=== PATIENT | female | born 1985 | race Caucasian/White ===

== ENCOUNTER 2024-07-08 03:56 | Emergency (ER) | payer OTHER, SELFPAY ==
[2024-07-08 04:00] VITALS: BP 129/87; PULSE 85; RESP 16; TEMP 36.7; O2SAT 99; BMI 25.7
[2024-07-08 04:30] VITALS: O2SAT 99
--- NOTE | 2024-07-08 06:28 | ED.GENADULT ---
HPI - General Adult General Date Seen: 08/01/24 Chief complaint: Abdominal Pain Stated complaint: Gallbladder Pain Time Seen by Provider: 07/08/24 06:28 Source: patient and RN notes reviewed Mode of arrival: ambulatory Limitations: no limitations History of Present Illness HPI narrative: This patient is presenting to the ED tonight with concern for gallbladder pain.? She has had episodes for years but it has never lasted this long.? She states maybe it would typically last today.? Her symptoms started on , today is early Tuesday morning.? She started with right upper pain, epigastric pain and cramping.? She had little body aches and chills on Tuesday, max temperature was 99? throughout all of this.? Now she is feeling pain into her right shoulder.? Symptoms definitely worsened with food.? She states she just really can not eat or drink.? She had a little diarrhea on Tuesday but otherwise no stool changes.? She tried some Excedrin tonight.? She has tried some Tums, did not really help, has had a little increased heartburn.? She states in her early 20s they did labs and an ultrasound, told her there were no stones but told her they could not rule out sludge.? Pain is not as bad as it was on Tuesday, just feels more of a dull ache in the epigastric area and it radiates to her right shoulder.? There is no associated cough or cold symptoms, not coughing.? She has had no abdominal surgeries.? Patient states she does not need anything for pain at this time. Current medications: control pills, spironolactone 100 mg daily, Valtrex p.r.n. Allergies: Morphine Related Data Home Medications ?Medication ?Instructions ?Recorded ?Confirmed desogestrel 0.15 mg-ethinyl 1 tab PO QDAY 08/22/22 07/08/24 estradiol 0.03 mg tablet (Apri) spironolactone 100 mg tablet 100 mg PO QDAY 08/22/22 07/08/24 Allergies Allergy/AdvReac Type Severity Reaction Status Date / Time morphine AdvReac Unknown Hives Verified 07/08/24 06:32 Review of Systems Status of ROS: Reports: 6 or more systems reviewed and unremarkable except as noted in History and below PFSH PFSH Social History Smoking Status: Never smoker How often do you have a drink containing alcohol: never AUDIT-C Alcohol total score: 0 Non-prescribed substance use: denies use Exam Const: Vital Signs, click to edit/add: Vital Signs - 24 hr 07/08/24 04:00 07/08/24 04:30 07/08/24 06:46 Temperature 98.0 F 98.0 F Pulse Rate [Pulse Oximeter] 85 75 Respiratory Rate 16 16 Blood Pressure [Ri ght Upper Arm] 129/87 124/86 Pulse Oximetry 99 99 99 Oxygen Delivery Me thod Room Air Room Air 07/08/24 06:47 Temperature 98.0 F Pulse Rate [Pulse Oximeter] 75 Respiratory Rate 16 Blood Pressure [Ri ght Upper Arm] 124/86 Pulse Oximetry Oxygen Delivery Me thod Physical exam:? She is afebrile at 98? F, pulse oximetry 99% on room air.? Respiratory rate 16.? Heart rate 85.? Blood pressure 129/87.? Patient is alert, interactive, no apparent distress.? Ambulatory into the ED of her own accord.? Sclera clear, conjugate gaze, symmetrical facial function.? Lungs are clear, good air entry, no wheezing crackles.? CV regular rate and rhythm, no murmur, normal S1-S2, no S3-S4.? Abdomen currently is soft, nontender, nondistended, no organomegaly, no rebound or guarding.? No jaundice noted. Documenting provider has reviewed patient's vital signs: yes Course Course ED Course: ED course:? Patient declines anything for pain.? Will get right upper quadrant ultrasound, agree with her this does sound biliary.? It could be biliary dyskinesia which she understands we will not necessarily see on ultrasound.? She certainly could have developed biliary colic with cholelithiasis.? Certainly does not seem to be consistent with pancreatitis but will check a lipase.? Need to consider cholecystitis but less likely the etiology at this time.? This may not be biliary, could be other intra-abdominal nonsurgical etiologies.? Will do full complement of labs and get the limited abdominal ultrasound of her right upper quadrant. Reevaluation(s) Reevaluation #1: Patient's ultrasound was not showing anything definitive, no specific gallbladder pathology on preliminary review from director of retail merchandising. Her C reactive protein is elevated at 5.2. Will proceed with CT imaging of abdomen and pelvis with IV contrast. Time of Reevaluation #2: 06:38 Reevaluation #2: Reviewed with patient her ultrasound, CT as well as labs. We did review the incidental findings on her CT scan. We also reviewed that her current symptoms are very likely from a viral illness causing the enteritis, colitis and mesenteric adenitis. I am surprised that she actually has not had more GI symptomatology but the ongoing pain certainly can be from the mesenteric adenitis. She has Zofran at home for migraine headaches and does not need more. We did discuss that she likely is through the worst but still may have a few days of symptoms. Mesenteric adenitis typically last anywhere from 5-10 days for most people that I have taking care of. She declines anything stronger for pain management. Did discuss that she should do scheduled Tylenol and ibuprofen. Patient in I did discuss HIDA scan for further evaluation of her gallbladder in the future if there is concern, can discuss this with her primary. We did review that this is a test that is not done through the ED. Vital Signs Vital signs: Initial Vital Signs Temperature 98.0 F 07/08/24 04:00 Temperature Source Temporal Artery Scan 07/08/24 04:00 Pulse Rate 85 07/08/24 04:00 Pulse Rhythm Regular 07/08/24 04:00 Respiratory Rate 16 07/08/24 04:00 Blood Pressure 129/87 07/08/24 04:00 Blood Pressure Mean 101 07/08/24 04:00 Blood Pressure Position Sitting 07/08/24 04:00 Pulse Oximetry 99 07/08/24 04:00 Oxygen Delivery Method Room Air 07/08/24 04:00 Vital Signs Temperature 98.0 F 07/08/24 04:00 Pulse Rate 85 07/08/24 04:00 Respiratory Rate 16 07/08/24 04:00 Blood Pressure 129/87 07/08/24 04:00 Pulse Oximetry 99 07/08/24 04:00 Oxygen Delivery Method Room Air 07/08/24 04:00 Temperature 98.0 F 07/08/24 06:47 Pulse Rate 75 07/08/24 06:47 Respiratory Rate 16 07/08/24 06:47 Blood Pressure 124/86 07/08/24 06:47 Pulse Oximetry 99 07/08/24 06:46 Oxygen Delivery Method Room Air 07/08/24 06:46 Medical Decision Making Lab Data Lab results reviewed: Yes I reviewed the patient's lab results Labs: Lab Results 07/08/24 Range/Units 04:15 WBC 5.03 (4.50-11.00) K/uL RBC 4.81 (4.00-5.20) m/uL Hgb 14.9 (12.0-16.0) gm/dL Hct 43.8 (33.0-51.0) % MCV 91 (80-100) fL MCH 31 (26-34) pg MCHC 34 (32-36) gm/dL Plt Count 245 (140-440) K/uL Neut % (Auto) 51.3 (42.0-72.0) % Lymph % (Auto) 32.6 (20-44) % Bethel % (Auto) 8.6 (0.0-11.0) % Eos % (Auto) 6.6 (0.0-7.0) % Baso % (Auto) 0.2 (0.0-3.0) % Neut # (Auto) 2.60 (1.7-7.0) K/uL Lymph # (Auto) 1.60 (0.90-2.90) K/uL Bethel # (Auto) 0.40 (0.00-0.90) K/UL Eos # (Auto) 0.30 (0.00-0.50) K/uL Baso # (Auto) 0.00 (0.00-0.30) K/uL Sodium 137 (135-149) mmol/L Potassium 4.2 (3.6-5.1) mmol/L Chloride 103 (96-114) mmol/L Carbon Dioxide 23 (20-32) mmol/L Anion Gap 11 (7-15) mEq/L BUN 12 (5-24) mg/dL Creatinine 0.8 (0.5-1.5) mg/dL Estimated Creat Clear 82.33 Estimated GFR 97 ml/min Glucose 103 (60-115) mg/dL Calcium 8.8 (8.4-10.6) mg/dL Total Bilirubin 0.6 (0.1-1.5) mg/dL Direct Bilirubin 0.4 (0.0-0.5) mg/dL AST 24 (12-35) U/L ALT 22 (4-35) U/L Alkaline Phosphatase 70 (40-150) U/L C-Reactive Protein 5.2 H (0.5-1.0) mg/dL Total Protein 6.9 (6.0-8.3) g/dL Albumin 4.0 (3.3-5.0) g/dL Lipase 67 (23-300) U/L Imaging Data US - abdomen: Attestation: I have reviewed the pertinent imaging results. Radiologist's impression: Facility:?[facility] Patient ID:?[id number] Site Patient ID:?[id number]. Site :?1985 Study:?US-Abdomen limited-07/08/2024 5:47:04 AM Ordering Physician:?Dr. Mendez Final Report: INDICATION: Right upper quadrant pain COMPARISON: None. TECHNIQUE: Parker-scale and color Doppler ultrasound of the right upper quadrant. FINDINGS: Pancreas: Well seen and normal. Liver: Normal hepatic echogenicity and normal echotexture. In the dome of the right lobe of the liver there is a 1.8 x 1.8 x 2.0 centimeter very well-circumscribed round homogeneously hyperechoic lesion. Patent portal vein with normal directional flow. Gallbladder and bile ducts: The gallbladder is normal. No stones or sludge. Normal wall thickness. No pericholecystic fluid. Negative sonographic Ma`s sign. No intrahepatic or extrahepatic biliary ductal dilatation. The common bile duct measures 4 mm. RIGHT Kidney: Renal length: 10.5 cm Parenchyma: Normal thickness and normal echogenicity. Cyst: None Mass: None Calculi: None Urinary tract: Minimal right renal pelviectasis with an anterior to posterior renal pelvic dimension of 1 centimeter. Abdominal aorta: Normal caliber. Ascites: None. IMPRESSION: 1. Mild right renal pelviectasis with an anterior-posterior dimension of 1 centimeter. This is usually physiologic but if the patient is having symptoms of urinary tract obstruction a ureteral calculus or other obstruction is possible. 2. There is a 2 centimeter liver lesion. Ultrasound appearance is generally consistent with a benign hemangioma. If this needs to be confirmed, MR abdomen without and with IV contrast liver mass protocol can be performed. Dictated by Caitie Wilson MD @ 07/08/2024 6:04:04 AM (Electronic Signature) CT scan - abdomen: Attestation: I have reviewed the pertinent imaging results. Radiologist's impression: Facility:?[facility] Patient ID:?[id number] Site Patient ID:?[id number]. Site :?1985 Study:?CT-Abdomen/Pelvis W/ 74CC ISOVUE 370-07/08/2024 6:13:34 AM Ordering Physician:BALTAZAR Final Report: INDICATION: Right upper quadrant abdominal pain. COMPARISON: Same day ultrasound TECHNIQUE: CT of the abdomen and pelvis with intravenous contrast. Multiplanar axial, coronal, and sagittal reformats were reconstructed. Contrast: 74 mL Isovue 370. FINDINGS: Lung bases: Normal. Liver: In segment there is a 1.7 centimeter subcapsular liver lesion. The lesion demonstrates nodular discontinuous hyperenhancement consistent with a benign hemangioma and also consistent with the appearance on ultrasound. No other liver lesions. Mild fatty infiltration at the falciform ligament. Normal hepatic vasculature. Gallbladder and bile ducts: Normal gallbladder. No bile duct dilation. Pancreas: Normal. Spleen: Normal. Adrenal glands: Normal. Kidneys: Normal parenchyma. No cyst or solid mass. No calculi. Minimal prominence of the extrarenal pelvises bilaterally symmetric. No ureteral dilatation. Urinary bladder: Barely filled at the time of the exam. Pelvis: There is a 2.5 centimeter right ovarian simple cystic lesion or dominant follicle. No adjacent inflammation or fluid. Vessels: Normal. Bowel: There is some mild mucosal hyperemia in the distal small bowel and colon. No wall thickening. Normal appendix. Mild stool burden. Lymph nodes: Numerous mildly enlarged to prominent mesenteric lymph nodes. See series 4, image 36. Peritoneum: No ascites. No free air. Abdominal wall: Tiny fat containing umbilical hernia. Bones: No fractures. No focal worrisome bone lesions. IMPRESSION: 1. Mesenteric adenitis. 2. Mild enteritis/colitis. No ischemia or obstruction. 3. Bilaterally symmetric prominent extrarenal pelvis appears physiologic. No urinary tract obstruction or urinary tract calculi. 4. There is a 1.7 centimeter hepatic benign hemangioma. No specific further imaging is recommended in a patient of this age given the ultrasound and CT findings today. 5. There is a 2.5 centimeter right ovarian cyst or dominant follicle. This is considered physiologic in a patient this age. Please note that all CT scans at this facility use dose modulation, iterative reconstruction, and/or weight-based dosing when appropriate to reduce radiation dose to as low as reasonably achievable. Dictated by Caitie Wilson MD @ 07/08/2024 6:24:08 AM (Electronic Signature) Discharge Plan Discharge Clinical Impression: Acute mesenteric adenitis, Enteritis, Colitis Patient Disposition: Home, Self-Care Condition: Stable Instructions: Mesenteric Adenitis (ED), Colitis (ED), Enteritis (ED) Additional Instructions: Can use Zofran if needed for nausea, take as your prescription at home states. Tylenol 1000 mg 3 times a day baseline for pain. Can supplement with ibuprofen per bottle directions if needed. Recommend clear liquids, small frequent sips. Can increase your diet as your abdominal symptoms improved. If you are not improving in the next 3-5 days, are worsening at any point with increasing abdominal pain, development of fevers or development of vomiting, do recommend re-evaluation. Prescriptions: No Action desogestrel-ethinyl estradiol [Apri] 0.15-0.03 mg tablet 1 tab PO QDAY spironolactone 100 mg tablet 100 mg PO QDAY Follow Up/Referrals: Reena Simmons MD [Primary Care Provider] - Stand Alone Forms: [employer] Info Instructions
--- OUTSIDE RECORDS SUMMARY | 2024-07-08 06:30 | XMS_ITS | Encounter Summary ---
Author Organization [place] Address [facility] [place] [address] Care Team Providers Care Spice Mixer Name Role Phone Emiliana Simmons MD Primary Care Provider + Emiliana Simmons MD Unavailable + Emiliana Simmons MD Unavailable + Vick Anne PA-C Unavailable + Emiliana Simmons MD Unavailable + Emiliana Simmons MD Unavailable + Iliana Greene CNM Unavailable [phone] Cris Smith MD Unavailable [phone] Opal Baumann APRN CREDIT UNDERWRITER Unavailable + Vick Anne PA-C Unavailable + Vick Anne PA-C Primary Care Provider [phone] Walter Waldrop DO Unavailable [phone] Encounter Details Date Type Department Care Team (Late st Contact Info) Description 04/30/2014 [facility] [id number] [place] [id number] Dina Robison DO [address] [place] [address] Social History Tobacco Use Types Packs/Day Years Used Date Smoking Tobacco: Never Smokeless Tobacco: Never Alcohol Use Standard Drinks/Week Comments Yes 0 (1 standard drink = 0.6 oz pur e alcohol) occasionally Comments No Sex and Gender Information Value Date Recorded Sex Assigned at Female 08/28/2018 9:26 AM CDT 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 Gender Identity Female 08/28/2018 9:26 AM CDT Sexual Orientation Straight 08/28/2018 9: 26 AM CDT documented as of this encounter Plan of Treatment Not on file documented as of this encounter Visit Diagnoses Not on filedocumented in this encounter Care Teams Spice Mixer Relationship Specialty Start Date End Date Emiliana Simmons MD PCP - General Family Practice 01/11/13 12/04/23 [place] [address] [address]ZAMA [id number] PCP - Assigned PCP 08/07/17 07/04/18 Vick Anne PA-C 64743 [address] [address] PCP - General 12/05/23 [place] [address] [address] [place]ZAMA [address] Assigned PCP 08/07/17 08/05/18 Vick Anne PA-C 320[address] [place] [address] Assigned PCP 08/06/18 04/14/19 [place] [address] [place] [address] Assigned PCP 04/15/19 08/30/20 [place] [address] [place] [address] Assigned PCP 08/31/20 03/05/22 Iliana Greene, [facility] [address] [place] [address] Assigned OBGYN Provider 03/22/21 Cris Smith MD [address] [facility] [address] [place], [place] [address] Assigned Surgical Provider 07/26/21 Opal Baumann APRN CREDIT UNDERWRITER [address] [place] [address] Assigned PCP 03/06/22 09/03/22 Vick Anne PA-C [address] [place] [address] Assigned PCP 09/04/22 [place] [address] JAM[address] RAI, [address] [address] Assigned Musculoskeletal Provider 12/23/23 documented as of this encounter
--- OUTSIDE RECORDS SUMMARY | 2024-07-08 06:31 | XMS_ITS | Encounter Summary ---
Author Organization [place] Address [facility] [place] [address] Care Team Providers Care Digital Product Specialist Name Role Phone Emiliana Simmons MD Primary Care Provider Emiliana Simmons MD Unavailable [phone] Emiliana Simmons MD Unavailable [phone] Vick Anne PA-C Unavailable + Emiliana Simmons MD Unavailable + Emiliana Simmons MD Unavailable + Iliana Greene CN Unavailable [phone] Cris Smith MD Unavailable [phone] Opal Baumann APRN DIRECTOR OF GLOBAL SALES Unavailable + Vick Anne PA-C Unavailable [phone] Vick Anne PA-C Primary Care Provider [phone] Walter Waldrop DO Unavailable [phone] Reason for Visit * Reason Onset Date Comments Weight Problem 10/10/2012 Weight gain Encounter Details Date Type Department Care Team (Late st Contact Info) Description 10/10/2012 [facility] [address], [address] [place] [address] [place] [address] [address] [id number] Weight Problem (Weight gain) Social History Tobacco Use Types Packs/Day Years Used Date Smoking Tobacco: Never Alcohol Use Standard Drinks/Week Comments Yes 0 (1 standard drink = 0.6 oz pur e alcohol) occasionally Comments Unknown Sex and Gender Information Value Date Recorded Sex Assigned at Female 08/28/2018 9:26 AM CDT 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 Please offer a thyroid tsh test, if not done in the past yr documented in this encounter Plan of Treatment Not on file documented as of this encounter Visit Diagnoses Not on filedocumented in this encounter Care Teams Digital Product Specialist Relationship Specialty Start Date End Date Emiliana Simmons MD PCP - General Family Practice 01/11/13 12/04/23 [place] [address] [address]ZAMA [id number] PCP - Assigned PCP 08/07/17 07/04/18 Vick Anne PA-C 00439 EMILY LIZAMA [address] PCP - General 12/05/23 [place] [address] [place] [address] Assigned PCP 08/07/17 08/05/18 Vick Anne PA-C [address] [place] [address] Assigned PCP 08/06/18 04/14/19 [place] [address] [place] [address] Assigned PCP 04/15/19 08/30/20 [place] [address] [place] [address] Assigned PCP 08/31/20 03/05/22 Iliana Greene CNM [address] [place] [address] Assigned OBGYN Provider 03/22/21 Cris Smith MD [address] [facility] [address] [place], [place] [id number] Assigned Surgical Provider 07/26/21 Opal Baumann APRN DIRECTOR OF GLOBAL SALES [address] [place] [address] Assigned PCP 03/06/22 09/03/22 Vick Anne PA-C [address] [place] [address] Assigned PCP 09/04/22 [place] [address] JAM[address] RAI, [address] [address] Assigned Musculoskeletal Provider 12/23/23 documented as of this encounter
--- OUTSIDE RECORDS SUMMARY | 2024-07-08 06:31 | XMS_ITS | Encounter Summary ---
Author Organization [place] Address [facility] [place] [address] Care Team Providers Care [employer] Highway Patrol Name Role Phone Emiliana Simmons MD Primary Care Provider Emiliana Simmons MD Unavailable [phone] Emiliana Simmons MD Unavailable [phone] Iliana Greene CN Unavailable [phone] Cris Smith MD Unavailable [phone] Opal Baumann APRN [facility] Unavailable [phone] Vick Anne PA-C Unavailable Vick Anne PA-C Primary Care Provider [phone] Walter Waldrop DO Unavailable [phone] Reason for Visit * Reason Onset Date Comments Refill Request 10/16/2019 Encounter Details Date Type Department Care Team (Late st Contact Info) Description 10/16/2019 Lonnie Rodas [address], [address] [place] [address] Vick Anne PA-C [address] [place] [address] Refill Request Social History Tobacco Use Types Packs/Day Years Used Date Smoking Tobacco: Never Smokeless Tobacco: Never Alcohol Use Standard Drinks/Week Comments Yes 0 (1 standard drink = 0.6 oz pur e alcohol) occasionally PHQ-2 Answer Date Recorded PHQ-2 Score 0 05/10/2018 Comments No Sex and Gender Information Value Date Recorded Sex Assigned at Female 08/28/2018 9:26 AM CDT 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 No / Unsure 09/19/2019 7:38 AM CDT documented as of this encounter Miscellaneous Notes * Telephone Encounter - Pamela Posey RN - 10/16/2019 3:55 PM CDT Duplicate request, refusing refill request and closing encounter. Pamela Posey RN on 10/16/2019 at 3:55 PM documented in this encounter Plan of Treatment Not on file documented as of this encounter Visit Diagnoses Diagnosis Cold sore Herpes simplex without mention of complication documented in this encounter Additional Health Concerns Assessment Noted Time PHQ-9 Depression Total Score: 1 04/06/20 16 7:08 AM ZIPPER LINING FOLDER documented as of this encounter Care Teams Pilot [employer] Patrol Relationship Specialty Start Date End Date Emiliana Simmons MD PCP - General Family Practice 01/11/13 12/04/23 Vick Anne PA-C [address] EMILY LIZAMA [phone] PCP - General 12/05/23 [place] [address] [address]ZAMA [address] Assigned PCP 04/15/19 08/30/20 [place] [address] [address] LIZAMA [phone] Assigned PCP 08/31/20 03/05/22 Iliana Greene CN [address] [place], [place] [id number] Assigned OBGYN Provider 03/22/21 Cris Smith MD 420 [facility] [address] [place], [place] [address] Assigned Surgical Provider 07/26/21 Opal Baumann APRN HYDRAULIC PLUMBER [address] EMILY LIZAMA [id number] Assigned PCP 03/06/22 09/03/22 Vick Anne PA-C 66341 EMILY LIZAMA [id number] Assigned PCP 09/04/22 [place] [address] JAMAL RAI, [address] [address] Assigned Musculoskeletal Provider 12/23/23 documented as of this encounter
--- OUTSIDE RECORDS SUMMARY | 2024-07-08 06:31 | XMS_ITS | Encounter Summary ---
Author Organization [facility] Address [facility] [place] [address] Care Team Providers Care Diamond Picker Name Role Phone Emiliana Simmons MD Primary Care Provider Emiliana Simmons MD Unavailable [phone] Emiliana Simmons MD Unavailable [phone] Iliana Greene CN Unavailable [phone] Cris Smith MD Unavailable [phone] Opal Baumann APRN [facility] Unavailable [phone] Vick Anne PA-C Unavailable [phone] Vick Anne PA-C Primary Care Provider [phone] Walter Waldrop DO Unavailable [phone] Encounter Details Date Type Department Care Team (Late st Contact Info) Description 06/25/2019 [facility]ice [address], [address] [place] [address] Randi Brantley Social History Tobacco Use Types Packs/Day Years Used Date Smoking Tobacco: Never Smokeless Tobacco: Never Alcohol Use Standard Drinks/Week Comments Yes 0 (1 standard drink = 0.6 oz pur e alcohol) occasionally PHQ-2 Answer Date Recorded PHQ-2 Score 0 05/10/2018 Comments No Sex and Gender Information Value Date Recorded Sex Assigned at Female 08/28/2018 9:26 AM CDT 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 Gender Identity Female 08/28/2018 9:26 AM CDT Sexual Orientation Straight 08/28/2018 9: 26 AM CDT documented as of this encounter Plan of Treatment Not on file documented as of this encounter Visit Diagnoses Not on filedocumented in this encounter Additional Health Concerns Assessment Noted Time PHQ-9 Depression Total Score: 1 04/06/20 16 7:08 AM COKE WORKER documented as of this encounter Care Teams Diamond Picker Relationship Specialty Start Date End Date Emiliana Simmons MD PCP - General Family Practice 01/11/13 12/04/23 Vick Anne PA-C 31512 EMILY LIZAMA [id number] PCP - General 12/05/23 [place] [address] EMILY LIZAMA 74044 Assigned PCP 04/15/19 08/30/20 [place] [address] EMILY LIZAMA [id number] Assigned PCP 08/31/20 03/05/22 Iliana Greene CNM [address] [place] [address] Assigned OBGYN Provider 03/22/21 Cris Smith MD 420 [facility] [address] [place], [place] [address] Assigned Surgical Provider 07/26/21 Opal Baumann APRN JAVA J2EE SOFTWARE ENGINEER 00601 EMILY LIZAMA 10343 Assigned PCP 03/06/22 09/03/22 Vick Anne PA-C 74941 EMILY LIZAMA 76073 Assigned PCP 09/04/22 [place] [address] JAMAL RAI, [address] [address] Assigned Musculoskeletal Provider 12/23/23 documented as of this encounter
--- OUTSIDE RECORDS SUMMARY | 2024-07-08 06:31 | XMS_ITS | Encounter Summary ---
Author Organization [place] Address [facility] [place] [address] Care Team Providers Care Corporate Strategy Analyst Name Role Phone Emiliana Simmons MD Primary Care Provider Emiliana Simmons MD Unavailable [phone] Emiliana Simmons MD Unavailable [phone] Vick Anne PA-C Unavailable + Emiliana Simmons MD Unavailable + Emiliana Simmons MD Unavailable [phone] Iliana Greene CN Unavailable [phone] Cris Smith MD Unavailable [phone] Opal Baumann APRN SCHEME TECHNICIAN Unavailable + [phone] Vick Anne PA-C Unavailable [phone] Vick Anne PA-C Primary Care Provider [phone] Walter Waldrop DO Unavailable [phone] Reason for Visit * Reason Onset Date Comments Breast Problem 08/12/2014 Mastitis follow up Encounter Details Date Type Department Care Team (Late st Contact Info) Description 08/12/2014 [facility] [address], [address] [place] [address] [place] [address] EMILY LIZAMA [id number] Breast Problem (Mastitis follow up) Social History Tobacco Use Types Packs/Day Years Used Date Smoking Tobacco: Never Smokeless Tobacco: Never Alcohol Use Standard Drinks/Week Comments Yes 0 (1 standard drink = 0.6 oz pur e alcohol) occasionally Comments No Sex and Gender Information Value Date Recorded Sex Assigned at Female 08/28/2018 9:26 AM CDT Legal Sex Female 10:35 AM PUBLIC POLICY ASSOCIATE Gender Identity Female 08/28/2018 9:26 AM CDT Sexual Orientation Straight 08/28/2018 9: 26 AM CDT documented as of this encounter Miscellaneous Notes * Telephone Encounter - Emiliana Simmons MD - 08/12/2014 11:25 AM CDT This may need an appointment and exam. Is she feeling any firmness at all in the breast, or is everything back to normal? Is she also breast feeding or only pumping? An ultrasound maybe needed to check on everything documented in this encounter Plan of Treatment Not on file documented as of this encounter Visit Diagnoses Not on filedocumented in this encounter Care Teams Corporate Strategy Analyst Relationship Specialty Start Date End Date Emiliana Simmons MD PCP - General Family Practice 01/11/13 12/04/23 [place] [address] EMILY LIZAMA 43930 PCP - Assigned PCP 08/07/17 07/04/18 Vick Anne PA-C 04385 EMILY LIZAMA 81592 PCP - General 12/05/23 [place] [address] [place] [address] Assigned PCP 08/07/17 08/05/18 Vick Anne PA-C [address] [place] [address] Assigned PCP 08/06/18 04/14/19 [place] [address] [address] [place], [place] [id number] Assigned PCP 04/15/19 08/30/20 [place] [address] [address] [place], [place] [id number] Assigned PCP 08/31/20 03/05/22 Iliana Greene CNM [address] [place], [place] [id number] Assigned OBGYN Provider 03/22/21 Cris Smith MD 420 [facility] 396 [place], [place] [id number] Assigned Surgical Provider 07/26/21 Opal Baumann APRN SCHEME TECHNICIAN [address] [address] [place], [place] [id number] Assigned PCP 03/06/22 09/03/22 Vick Anne PA-C 132[address] [place] [address] Assigned PCP 09/04/22 [place] [address] JAMAL RAI, [address] [address] Assigned Musculoskeletal Provider 12/23/23 documented as of this encounter
--- OUTSIDE RECORDS SUMMARY | 2024-07-08 06:31 | XMS_ITS | Encounter Summary ---
Author Organization [place] Address Counts include 234 beds at the [facility]0 [facility] [address] Care Team Providers Care Oracle Ebs Architect Name Role Phone Emiliana Simmons MD Primary Care Provider Iliana Greene CNM Unavailable [phone] Cris Smith MD Unavailable [phone] Opal Baumann APRN MACHINING AND ASSEMBLY SUPERVISOR Unavailable [phone] Vick Anne PA-C Unavailable [phone] Vick Anne PA-C Primary Care Provider [phone] Walter Waldrop DO Unavailable [phone] Encounter Details Date Type Department Care Team (Late st Contact Info) Description 04/28/2022 [facility] Medical Advice [address] [address] Carito Olivares Social History Tobacco Use Types Packs/Day Years Used Date Smoking Tobacco: Never Smokeless Tobacco: Never Alcohol Use Standard Drinks/Week Comments Yes 0 (1 standard drink = 0.6 oz pur e alcohol) occasionally PHQ-2 Answer Date Recorded PHQ-2 Score 0 09/22/2021 Comments No Sex and Gender Information Value Date Recorded Sex Assigned at Female 08/28/2018 9:26 AM CDT Legal Sex Female 10:35 AM PATIENT CLERICAL ASSISTANT Gender Identity Female 08/28/2018 9:26 AM CDT Sexual Orientation Straight 08/28/2018 9: 26 AM CDT documented as of this encounter Plan of Treatment Not on file documented as of this encounter Visit Diagnoses Not on filedocumented in this encounter Additional Health Concerns Assessment Noted Time PHQ-9 Depression Total Score: 1 04/06/20 16 7:08 AM PATIENT CLERICAL ASSISTANT documented as of this encounter Care Teams Oracle Ebs Architect Relationship Specialty Start Date End Date Emiliana Simmons MD PCP - General Family Practice 01/11/13 12/04/23 Vick Anne PA-C 39588 EMILY LIZAMA [id number] PCP - General 12/05/23 Iliana Greene CNM [address] [place], [place] [id number] Assigned OBGYN Provider 03/22/21 Cris Smith MD 420 [facility] 396 [place], [place] [address] Assigned Surgical Provider 07/26/21 Opal Baumann APRN MACHINING AND ASSEMBLY SUPERVISOR 80294 EMILY LIZAMA [id number] Assigned PCP 03/06/22 09/03/22 Vick Anne PA-C 81825 EMILY LIZAMA [id number] Assigned PCP 09/04/22 [place] [address] JAMAL RAI, [address] [address] Assigned Musculoskeletal Provider 12/23/23 documented as of this encounter
--- OUTSIDE RECORDS SUMMARY | 2024-07-08 06:31 | XMS_ITS | Encounter Summary ---
Author Organization [place] Address [address] [facility] [address] Care Team Providers Care Birth Certificate Clerk Name Role Phone Emiliana Simmons MD Primary Care Provider Cris Smith MD Unavailable [phone] Vick Anne PA-C Unavailable [phone] Vick Anne PA-C Primary Care Provider [phone] Walter Waldrop DO Unavailable [phone] Reason for Visit * Reason Comments Medication Refill Encounter Details Date Type Department Care Team (Late st Contact Info) Description [facility] [address] [place] [address] Vick Anne PA-C [address] [place] [address] Medication Refill Social History Tobacco Use Types Packs/Day Years Used Date Smoking Tobacco: Never Smokeless Tobacco: Never Alcohol Use Standard Drinks/Week Comments Yes 0 (1 standard drink = 0.6 oz pur e alcohol) occasionally PHQ-2 Answer Date Recorded PHQ-2 Score 0 08/31/2022 Comments No Sex and Gender Information Value Date Recorded Sex Assigned at Female 08/28/2018 9:26 AM CDT Legal Sex Female 10:35 AM HIDE DROPPER Gender Identity Female 08/28/2018 9:26 AM CDT Sexual Orientation Straight 08/28/2018 9: 26 AM CDT documented as of this encounter Miscellaneous Notes * Telephone Encounter - Ju Galaviz RN - 11/03/2022 1:50 PM CDT Routing refill request to provider for review/approval because: Labs not current: Creatinine Date Value Ref Range Status 09/22/2021 0.70 0.52 - 1.04 mg/dL Final 08/28/2020 0.75 0.52 - 1.04 mg/dL Final documented in this encounter Plan of Treatment Not on file documented as of this encounter Visit Diagnoses Diagnosis Cold sore Herpes simplex without mention of complication documented in this encounter Additional Health Concerns Assessment Noted Time PHQ-9 Depression Total Score: 1 04/06/20 16 7:08 AM HIDE DROPPER documented as of this encounter Care Teams Birth Certificate Clerk Relationship Specialty Start Date End Date Emiliana Simmons MD PCP - General Family Practice 01/11/13 12/04/23 Vick Anne PA-C [address] [address] [place] [id number] PCP - General 12/05/23 Cris Smith MD [address] [place] [address] 396 [place] [address] Assigned Surgical Provider 07/26/21 Vick Anne PA-C 53023 EMILY LIZAMA [address] Assigned PCP 09/04/22 [place] [address] JAMAL RAI, [address] [address] Assigned Musculoskeletal Provider 12/23/23 documented as of this encounter
--- OUTSIDE RECORDS SUMMARY | 2024-07-08 06:31 | XMS_ITS | Encounter Summary ---
Author Organization [place] Address [facility] [place] [address] Care Team Providers Care Director News Name Role Phone Emiliana Simmons MD Primary Care Provider Emiliana Simmons MD Unavailable [phone] Emiliana Simmons MD Unavailable [phone] Iliana Greene CN Unavailable [phone] Cris Smith MD Unavailable [phone] Opal Baumann APRN [facility] Unavailable [phone] Vick Anne PA-C Unavailable [phone] Vick Anne PA-C Primary Care Provider [phone] Walter Waldrop DO Unavailable [phone] Encounter Details Date Type Department Care Team (Late st Contact Info) Description 08/08/2020 [facility] Advice [address] [address] Lili Anguiano MA Social History Tobacco Use Types Packs/Day Years Used Date Smoking Tobacco: Never Smokeless Tobacco: Never Alcohol Use Standard Drinks/Week Comments Yes 0 (1 standard drink = 0.6 oz pur e alcohol) occasionally PHQ-2 Answer Date Recorded PHQ-2 Score 0 05/10/2018 Comments No Sex and Gender Information Value Date Recorded Sex Assigned at Female 08/28/2018 9:26 AM CDT Legal Sex Female 10:35 AM STEAM TENDER Gender Identity Female 08/28/2018 9:26 AM CDT Sexual Orientation Straight 08/28/2018 9: 26 AM CDT documented as of this encounter Plan of Treatment Not on file documented as of this encounter Visit Diagnoses Not on filedocumented in this encounter Additional Health Concerns Assessment Noted Time PHQ-9 Depression Total Score: 1 04/06/20 16 7:08 AM STEAM TENDER documented as of this encounter Care Teams Director News Relationship Specialty Start Date End Date Emiliana Simmons MD PCP - General Family Practice 01/11/13 12/04/23 Vick Anne PA-C 65547 EMILY LIZAMA [address] PCP - General 12/05/23 [place] [address] EMILY LIZAMA [address] Assigned PCP 04/15/19 08/30/20 [place] [address] EMILY LIZAMA [id number] Assigned PCP 08/31/20 03/05/22 Iliana Greene CNM [address] [place] [address] Assigned OBGYN Provider 03/22/21 Cris Smith MD 420 [facility] 396 [place] [address] Assigned Surgical Provider 07/26/21 Opal Baumann APRN HEAD OF DESIGN 00899 EMILY LIZAMA [address] Assigned PCP 03/06/22 09/03/22 Vick Anne PA-C 03129 EMILY LIZAMA [address] Assigned PCP 09/04/22 [place] [address] JAMAL RAI, [address] [address] Assigned Musculoskeletal Provider 12/23/23 documented as of this encounter
--- OUTSIDE RECORDS SUMMARY | 2024-07-08 06:31 | XMS_ITS | Clinical Summary ---
Author Organization [facility] Address [address] [place] [address] Care Team Providers Care Contact Worker Name Role Phone Pcp, No Primary Care Provider Unavailabl e Allergies Active Allergy Reactions Criticality Noted Date Comments Morphine Hives 09/01/2009 Hives at IV site. Medications valACYclovir (VALTREX) 1 g tabletIndications: Herpes labialis 2 oral twice daily for a day, as needed for cold sores. 16 tablet 1 2 Active ethinyl estradiol-norelges trom (ORTHO EVRA) 150-20 mcg/24 hr patchIndications:O ther general counseling and advice for contraceptive management Apply 1 Patch on dry, clean, hairless skin once weekly. For 3 weeks, then skip a week 9 Patch 4 2 Active fluticasone, 50 mcg per actuation, nasal (FLONASE) sprayIndications:A llergic rhinitis, cause unspecified Inhale 1 [place] into both nostrils once daily. 1 Bottle 5 2 Active albuterol HFA (PRO-AIR,VENTOLIN, PROVENTIL) 90 mcg/actuation inhalerIndications :Unspecified asthma(493.90) Inhale 2 Puffs by mouth every 4 hours if needed. 1 Inhaler 0 3 Active Active Problems Problem Noted Date Diagnosed Date ASCUS on Pap smear-HPV 10/27/2011 Sinus infection 06/14/2011 Pancolitis 07/13/2010 Hypocalcemia 07/13/2010 Papanicolaou smear of cervix with low grade squamous intraepithelial lesion (LGSIL) 04/28/2009 Overview (03/29/2011): 04/09: LSIL [place] 05/11: minimal changes suggestive of HPV 02/08: positive for high-risk human papilloma virus, Pap shows atypical cells. BV 05/12: NIL 03/12: ASCUS +HPV Nipple discharge 01/18/2008 Overview (03/15/2011): Prolactin slightly elevated 01/07 - saw cost estimating manager who followed and determined was side effect of control; no further f/u needed. pcos 12/03/2005 ASTHMA NOS W/O STATUS ASTHMATICUS 03/28/2001 ACNE NEC 01/11/2000 Resolved Problems Problem Noted Date Diagnosed Date Resolved Date Acute hypokalemia 07/13/2010 03/15/2011 Acidosis, metabolic 07/13/2010 03/15/20 11 Palpitations 06/12/2009 03/15/2011 Overview (06/17/2009): Saw Dr. Valdez- felt to be due to [facility] Irregular menstrual cycle 01/11/2000 Immunizations Immunization Administration Dates Next Due DTP 11/28/1991,03/18/1988,1986 Hepatitis B (Peds) 12/20/2006,08/21/2004, 002 Human Papilloma Virus Vaccine 10/27/2011, 011,02/09/2010 Influenza, IIV3 (Age >=3 years) 01/05/2012,01/28 MMR 11/28/1991,03/18/1988 Oral Polio Vaccine 06/25/1993,11/28/1991, 988,1986 Td (Age >=7 Years) 12/09/1998 Tdap 12/20/2006 Tuberculin (PPD) 09/14/2010 Family History Medical History Relation Name Comments Heart Disease Father one valve quiv ers instead of working normally- not sure if atrial fibrillation. Cancer-prostate Maternal Grandfather Hyperlipidemia Maternal Grandmother Other Maternal Grandmother gallsto trell Diabetes Paternal Grandmother Heart Disease Paternal Grandmother CHF Hypertension Paternal Grandmother Genetic Sister sister with kimberly lassemia beta trait Relation Name Status Comments Father Maternal Grandfather Maternal Grandmother Paternal Grandmother Sister Social History Tobacco Use Types Packs/Day Years Used Date Smoking Tobacco: Never Smokeless Tobacco: Never Tobacco Cessation:Counseling Given: No Alcohol Use Standard Drinks/Week Comments Yes 0 (1 standard drink = 0.6 oz pure alcohol) Occasional - 2-3 drinka a month Comments No Sex and Gender Information Value Date Recorded Sex Assigned at Not on file Legal Sex Female 5:24 AM SENIOR QC TECHNICIAN Gender Identity Not on file Sexual Orientation Not on file Occupation Industry 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 Not on file Not on file Not on fi le Obstetrics History Para Term AB IAB SAB Ectopic Multiple Livin g Live Births 0 0 0 0 0 0 0 0 0 0 Last Filed Vital Signs Vital Sign Reading Time Taken Comments Blood Pressure 100/70 03/30/2012 4:15 PM SENIOR QC TECHNICIAN Pulse 98 03/30/2012 4:15 PM SENIOR QC TECHNICIAN Temperature 36.8 C (98.3 F) 02/15/2011 8:58 AM CDT Respiratory Rate 16 07/15/2010 11:59 AM CDT Oxygen Saturation 100% 08/11/2011 4:02 PM CDT Inhaled Oxygen Concentration - - Weight 53.7 kg (118 lb 6.4 oz) 03/30/2012 4:15 P M SENIOR QC TECHNICIAN Height 162.6 cm (5' 4) 03/30/2012 4:15 PM SENIOR QC TECHNICIAN Body Mass Index 20.32 03/30/2012 4:15 PM SENIOR QC TECHNICIAN Plan of Treatment Health Maintenance Due Date Last Done Comments Depression screening for age 12+ 1998 BMI (ht and wt on same day) for age 18+ 01/29/2004 Pap test for age 21-65 03/30/2015 2, 10/27/2011, 03/15/2011, Additional history exists Tetanus booster 12/20/2016 12/20/2006, 12/09/1998 (IA) Influenza for age 9-49 01/01/2024 01/05/2012, 0 2010 COVID-19 vaccine series ( season) 2024 Hepatitis C screening for age 18-79 Completed 12/03/2005, 08/21/2004 Tdap Completed 12/20/2006 HIV for age 15-65 Completed 07/15/2010 Pneumococcal series for age 6-49 Aged Out No longer eligible based on patient's age to complete this topic Procedures Procedure Name Priority Date/Time Associated Diagnosis Comments FOOD MOBILE DRIVER THIN PREP PAP DIAGNOSTIC IMAGED Routine 03/30/2012 5:20 PM SENIOR QC TECHNICIAN LGSIL on Pap smear ANTI HIV 1/2 Early AM 07/15/2010 8:30 AM CDT ANTI HCV Routine 12/03/2005 2:57 PM CDT Screening Exam Venereal Disease from Last 3 Months or Most Recently Relevant to Health Maintenance Results * FOOD MOBILE DRIVER THIN PREP PAP DIAGNOSTIC IMAGED (03/30/2012 5:20 PM SENIOR QC TECHNICIAN) CYTOLOGY CYTOPATHOLOGY REPORT [facility] Status: Final Status [id number] CLINICAL INFORMATION Last Date of LMP :03/08/12 Last Pap Date :10/27/2011 Last Pap Result :LSIL ABN [place]/Bx Past 5 YRS :LSIL Hormone Usage :BCP/OCP/Patch/Rin g Menstrual Status :Regular Periods [place]/Bx done today :No Additional Information :None given HPV Request :HPV if ASCUS SPECIMEN SOURCE :Cervical/vaginal ThinPrep Vial, diagnostic SPECIMEN ADEQUACY :Satisfactory for evaluation Endocervical component present. INTERPRETATION/RES ULT Negative for intraepithelial lesion or malignancy (NIL) Organisms Fungal organisms morphologically consistent with Carol species Cytology 1st Screener :gn Cytology 2nd Screener :sag Signed by :june This specimen was screened by the FDA approved ThinPrep Imaging System and manually reviewed. NOTE: The Pap test is a screening technique, not a diagnostic procedure. It is used primarily to screen for squamous cancers and precursor lesions. Published studies have shown that it is subject to both false negative and false positive results. The pap test should not be used as the sole means to diagnose or exclude pre-malignant and malignant lesions. COLLECTED:03/30/12 ACCESSIONED: 04/01/12 SIGNED: 04/06/12 [facility] [place] CODE NIL [facility] Tissue specimen (specimen) (Cervical/Vagina l) 03/30/2012 5:20 PM SENIOR QC TECHNICIAN 03/30/2012 5:19 PM SENIOR QC TECHNICIAN us Edie Orr MD PATHOLOGY/CYTOLOGY Final Resul t [facility] INTERNAL ZIP [address] [place] [address] * ANTI HIV 1/2 (07/15/2010 8:30 AM CDT) ANTI HIV 1/2 Non-reacti ve [facility] Blood specimen (specimen) BLOOD SPECIMEN / Unknown 07/15/2010 8:30 AM CDT 07/14/2010 10:02 PM CDT us Gonzalo Nix MD SEND OUTS Final Result [facility] INTERNAL ZIP [id number] [place] [id number] * ANTI HCV (12/03/2005 2:57 PM CDT) ANTI HCV Non-reactiv e [facility] Blood specimen (specimen) BLOOD SPECIMEN / Unknown 12/03/2005 2:57 PM CDT 12/03/2005 2:55 PM CDT Narrative [facility] - 12/08/2005 8:31 AM CDT Testing Performed By [place], [place] us Silvia Pate MD SEND OUTS F inal Result [facility] [address] [place] [address] from Last 3 Months or Most Recently Relevant to [place] [address] Advance Directives * Full Code (Latest Code Status on File) Date Activated Date Inactivated Comments 07/13/2010 4:35 PM 07/15/2010 4:18 PM Care Teams Contact Worker Relationship Specialty Start Date End Date Pcp, No . PCP - General 06/25/16
--- OUTSIDE RECORDS SUMMARY | 2024-07-08 06:31 | XMS_ITS | Encounter Summary ---
Author Organization [place] Address Formerly [facility] [place] [address] Care Team Providers Care Inspector Production Plastic Parts Name Role Phone Emiliana Simmons MD Primary Care Provider Emiliana Simmons MD Unavailable [phone] Emiliana Simmons MD Unavailable [phone] Iliana Greene CN Unavailable [phone] Cris Smith MD Unavailable [phone] Opal Baumann APRN [facility] Unavailable [phone] Vick Anne PA-C Unavailable Vick Anne PA-C Primary Care Provider [phone] Walter Waldrop DO Unavailable [phone] Reason for Visit * Reason Onset Date Comments Medication Update 05/02/2019 Spironolactone Encounter Details Date Type Department Care Team (Late st Contact Info) Description 05/02/2019 MyC Medical Advice [address], [address] [place] [address] [place] [address] [facility] [place] [place] [address] Medication Update (Spironolactone) Social History Tobacco Use Types Packs/Day Years Used Date Smoking Tobacco: Never Smokeless Tobacco: Never Alcohol Use Standard Drinks/Week Comments Yes 0 (1 standard drink = 0.6 oz pur e alcohol) occasionally PHQ-2 Answer Date Recorded PHQ-2 Score 0 05/10/2018 Comments No Sex and Gender Information Value Date Recorded Sex Assigned at Female 08/28/2018 9:26 AM CDT Legal Sex Female 10:35 AM PATIENT SUPPORT TECH Gender Identity Female 08/28/2018 9:26 AM CDT Sexual Orientation Straight 08/28/2018 9: 26 AM CDT documented as of this encounter Miscellaneous Notes * Telephone Encounter - Emiliana Simmons MD - 05/03/2019 3:40 PM PATIENT SUPPORT TECH Please call pt. She can make a acne follow appt appt or Evisit, we can keep adjusting or changing her meds, if she wants the IUD out, this is her call, please offer appt if needed ENT SUPPORT TECH documented in this encounter Plan of Treatment Not on file documented as of this encounter Visit Diagnoses Not on filedocumented in this encounter Additional Health Concerns Assessment Noted Time PHQ-9 Depression Total Score: 1 04/06/20 16 7:08 AM PATIENT SUPPORT TECH documented as of this encounter Care Teams Inspector Production Plastic Parts Relationship Specialty Start Date End Date Emiliana Simmons MD PCP - General Family Practice 01/11/13 12/04/23 Vick Anne PA-C 75108 EMILY LIZAMA [address] PCP - General 12/05/23 [place] [address] EMILY LIZAMA 24003 Assigned PCP 04/15/19 08/30/20 [place] [address] [place] [address] Assigned PCP 08/31/20 03/05/22 Iliaan Greene CNM [address] [place] [address] Assigned OBGYN Provider 03/22/21 Cris Smith MD 420 [facility] 396 [place], [place] [address] Assigned Surgical Provider 07/26/21 Opal Baumann APRN LEAD PERFORMANCE SUPPORT ANALYST [address] [address] EMILY SARMIENTO [address] Assigned PCP 03/06/22 09/03/22 Vick Anne PA-C 08799 EMILY LIZAMA [address] Assigned PCP 09/04/22 [place] [address] JAMAL RAI, [address] [address] Assigned Musculoskeletal Provider 12/23/23 documented as of this encounter
--- OUTSIDE RECORDS SUMMARY | 2024-07-08 06:31 | XMS_ITS | Encounter Summary ---
Author Organization [place] Address [facility] [place] [address] Care Team Providers Care Painter Helper Spray Name Role Phone Emiliana Simmons MD Primary Care Provider Emiliana Simmons MD Unavailable [phone] Emiliana Simmons MD Unavailable [phone] Iliana Greene CN Unavailable [phone] Cris Smith MD Unavailable [phone] Opal Baumann APRN [facility] Unavailable [phone] Vick Anne PA-C Unavailable [phone] Vick Anne PA-C Primary Care Provider [phone] Walter Waldrop DO Unavailable [phone] Encounter Details Date Type Department Care Team (Late st Contact Info) Description 10/16/2019 [facility] [place] [address] [address] Randi Brantley Social History Tobacco Use Types [...] AM CDT Legal Sex Female 10:35 AM POWDER SHOVELER Gender Identity Female 08/28/2018 9:26 AM CDT [...] Total Score: 1 04/06/20 16 7:08 AM POWDER SHOVELER documented as of this encounter Care Teams Painter Helper Spray Relationship Specialty Start Date End Date Emiliana Simmons MD PCP - General Family Practice 01/11/13 12/04/23 Vick Anne PA-C 76381 EMILY LIZAMA [address] PCP - General 12/05/23 [place] [address] EMILY LIZAMA 82175 Assigned PCP 04/15/19 08/30/20 [place] [address] EMILY LIZAMA [address] Assigned PCP 08/31/20 03/05/22 Iliana Greene CNM [address]45 [place] [address] Assigned OBGYN Provider 03/22/21 Cris Smith MD 420 [facility] 396 [place], [place] [address] Assigned Surgical Provider 07/26/21 Opal Baumann APRN SHOWROOM SALES CONSULTANT [address] [place] [address] Assigned PCP 03/06/22 09/03/22 Vick Anne PA-C [address] [place] [address] Assigned PCP 09/04/22 [place] [address] JAMAL RAI, [address] [address] Assigned Musculoskeletal Provider 12/23/23 documented as of this encounter
--- OUTSIDE RECORDS SUMMARY | 2024-07-08 06:31 | XMS_ITS | Encounter Summary ---
Author Organization [place] Address [facility]0 [facility] [place] [address] Care Team Providers Care Acid Adjuster Name Role Phone Emiliana Simmons MD Primary Care Provider Emiliana Simmons MD Unavailable [phone] Iliana Greene CN Unavailable + [phone] Cris Smith MD Unavailable [phone] Opal Baumann APRN MANAGER FIXED INCOME Unavailable [phone] Vick Anne PA-C Unavailable [phone] Vick Anne PA-C Primary Care Provider [phone] Walter Waldrop DO Unavailable [phone] Encounter Details Date Type Department Care Team (Late st Contact Info) Description 01/11/2021 [facility] [place]ice [facility] [address] [place] [address] [place] [address] [place] [address] Social History Tobacco Use Types Packs/Day Years Used Date Smoking Tobacco: Never Smokeless Tobacco: Never Alcohol Use Standard Drinks/Week Comments Yes 0 (1 standard drink = 0.6 oz pur e alcohol) occasionally PHQ-2 Answer Date Recorded PHQ-2 Score 0 08/28/2020 Comments No Sex and Gender Information Value Date Recorded Sex Assigned at Female 08/28/2018 9:26 AM CDT Legal Sex Female 10:35 AM BACON SKIN LIFTER Gender Identity Female 08/28/2018 9:26 AM CDT Sexual Orientation Straight 08/28/2018 9: 26 AM CDT documented as of this encounter Miscellaneous Notes * Telephone Encounter - Emiliana Simmons MD - 01/13/2021 2:44 PM CDT Recommend video visit to discuss all options first before scheduling removal of IUD With me, if able to get in or partners. * Telephone Encounter - Amanda Harmon RN - 01/12/2021 12:09 PM CDT Will forward to Dr. Simmons for advisal. documented in this encounter Plan of Treatment Not on file documented as of this encounter Visit Diagnoses Not on filedocumented in this encounter Additional Health Concerns Assessment Noted Time PHQ-9 Depression Total Score: 1 04/06/20 16 7:08 AM BACON SKIN LIFTER documented as of this encounter Care Teams Acid Adjuster Relationship Specialty Start Date End Date Emiliana Simmons MD PCP - General Family Practice 01/11/13 12/04/23 Vick Anne PA-C 47889 EMILY LIZAMA [address] PCP - General 12/05/23 [place] [address] EMILY LIZAMA [address] Assigned PCP 08/31/20 03/05/22 Iliana Greene CNM 2945 [place] [address] Assigned OBGYN Provider 03/22/21 Cris Smith MD 420 [facility] 396 [place] [address] Assigned Surgical Provider 07/26/21 Opal Baumann APRN MANAGER FIXED INCOME [address] EMILY LIZAMA [address] Assigned PCP 03/06/22 09/03/22 Vick Anne PA-C 86452 EMILY LIZAMA [address] Assigned PCP 09/04/22 [place] [address] JAMAL RAI, [address] [address] Assigned Musculoskeletal Provider 12/23/23 documented as of this encounter
--- OUTSIDE RECORDS SUMMARY | 2024-07-08 06:33 | XMS_ITS | Encounter Summary ---
Author Organization [place] Address [address] [facility] [place] [address] Care Team Providers Care Fabric Pattern Grader Name Role Phone Emiliana Simmons MD Primary Care Provider Cris Smith MD Unavailable [phone] Vick Anne PA-C Unavailable [phone] Vick Anne PA-C Primary Care Provider [phone] Walter Waldrop DO Unavailable [phone] Reason for Visit * Reason Onset Date Comments Panel Management 08/03/2023 Encounter Details Date Type Department Care Team (Late st Contact Info) Description 08/03/2023 [facility] [address] [place] [address] [place] [address] [place] [address] Panel Management Social History Tobacco Use Types Packs/Day Years Used Date Smoking Tobacco: Never Smokeless Tobacco: Never Alcohol Use Standard Drinks/Week Comments Yes 0 (1 standard drink = 0.6 oz pur e alcohol) occasionally PHQ-2 Answer Date Recorded PHQ-2 Score 0 08/04/2023 Adolescent Education Answer Date Record ed Getting School Help Needed Not on file 01/21 Interpersonal Safety Answer Date Record ed Do you feel physically and e motionally safe where you currently live? Yes 08/04/2023 Within the past 12 months, h ave you been hit, slapped, kicked or otherwise physically hurt by someone? No 08/04/2023 Within the past 12 months, h ave you been humiliated or emotionally abused in other ways by your partner or ex-partner? No 08/04/2023 Comments No Sex and Gender Information Value Date Recorded Sex Assigned at Female 08/28/2018 9:26 AM CDT Legal Sex Female 10:35 AM GRAIN OILSEED OR PASTURE FARM MANAGER Gender Identity Female 08/28/2018 9:26 AM CDT Sexual Orientation Straight 08/28/2018 9: 26 AM CDT documented as of this encounter Miscellaneous Notes * Telephone Encounter - Ameya Brown MA - 11/01/2023 9:25 AM CDT Patient Quality Outreach Patient is due for the following: Asthma - ACT needed Cervical Cancer Screening - PAP Needed Physical Preventive Adult Physical Next Steps: Schedule a Adult Preventative Type of outreach: Sent letter. and Copy of ACT mailed to patient. Next Steps: Reach out within 90 days via Letter. Max number of attempts reached: No. Will try again in 90 days if patient still on fail list. Questions for provider review: None Ameya Brown MA * Telephone Encounter - Ameya Brown MA - 08/03/2023 11:28 AM CDT Patient Quality Outreach Patient is due for the following: Asthma - ACT needed Next Steps: Patient was assigned appropriate questionnaire to complete Type of outreach: Sent [employer] message. Questions for provider review: None Ameya Brown MA documented in this encounter Plan of Treatment Not on file documented as of this encounter Visit Diagnoses Not on filedocumented in this encounter Additional Health Concerns Assessment Noted Time PHQ-9 Depression Total Score: 1 04/06/20 16 7:08 AM GRAIN OILSEED OR PASTURE FARM MANAGER documented as of this encounter Care Teams Fabric Pattern Grader Relationship Specialty Start Date End Date Troy, Emiliana Gina, MD PCP - General Family Practice 01/11/13 12/04/23 Vick Anne PA-C [address] [place] [address] PCP - General 12/05/23 Cris Simth MD 420 [facility] 396 [place] [address] Assigned Surgical Provider 07/26/21 Vick Anne PA-C [address] [place] [address] Assigned PCP 09/04/22 [place] [address] JAMAL RAI, [address] [address] Assigned Musculoskeletal Provider 12/23/23 documented as of this encounter
--- OUTSIDE RECORDS SUMMARY | 2024-07-08 06:33 | XMS_ITS | Encounter Summary ---
Author Organization [place] Address [facility]0 [facility] [place] [address] Care Team Providers Care Sealer Sander Name Role Phone Emiliana Simmons MD Primary Care Provider Emiliana Simmons MD Unavailable [phone] Vick Anne PA-C Unavailable [phone] Emiliana Simmons MD Unavailable + Emiliana Simmons MD Unavailable + Iliana Greene [facility] Unavailable + [phone] Cris Smith MD Unavailable [phone] Opal Baumann APRN [facility] Unavailable + Vick Anne PA-C Unavailable + Vick Anne PA-C Primary Care Provider [phone] Walter Waldrop DO Unavailable [phone] Reason for Visit * Reason Onset Date Comments Appointment 07/06/2018 Physical exam Encounter Details Date Type Department Care Team (Late st Contact Info) Description 07/06/2018 [facility] [address], [address] [place] [address] [place] [address] EMILY LIZAMA [address] Appointment (Physical exam) Social History Tobacco Use Types Packs/Day Years Used Date Smoking Tobacco: Never Smokeless Tobacco: Never Alcohol Use Standard Drinks/Week Comments Yes 0 (1 standard drink = 0.6 oz pur e alcohol) occasionally PHQ-2 Answer Date Recorded PHQ-2 Score 0 05/10/2018 Comments No Sex and Gender Information Value Date Recorded Sex Assigned at Female 08/28/2018 9:26 AM CDT Legal Sex Female 10:35 AM QA TECH Gender Identity Female 08/28/2018 9:26 AM CDT Sexual Orientation Straight 08/28/2018 9: 26 AM CDT documented as of this encounter Plan of Treatment Not on file documented as of this encounter Visit Diagnoses Not on filedocumented in this encounter Additional Health Concerns Assessment Noted Time PHQ-9 Depression Total Score: 1 04/06/20 16 7:08 AM QA TECH documented as of this encounter Care Teams Sealer Sander Relationship Specialty Start Date End Date Emiliana Simmons MD PCP - General Family Practice 01/11/13 12/04/23 Vick Anne PA-C 96526 EMILY LIZAMA [address] PCP - General 12/05/23 [place] [address] EMILY LIZAMA [address] Assigned PCP 08/07/17 08/05/18 Vick Anne PA-C 70485 EMILY LIZAMA [address] Assigned PCP 08/06/18 04/14/19 [place] [address] EMILY LIZAMA [address] Assigned PCP 04/15/19 08/30/20 [place] [address] [place] [address] Assigned PCP 08/31/20 03/05/22 Iliana Greene [facility] 2945 [place] [address] Assigned OBGYN Provider 03/22/21 Cris Smith MD 420 [facility] 396 [place] [address] Assigned Surgical Provider 07/26/21 Opal Baumann APRN [facility] [address] [place] [address] Assigned PCP 03/06/22 09/03/22 Vick Anne PA-C [address] [place] [address] Assigned PCP 09/04/22 [place] [address] JAMAL RAI, [address] [address] Assigned Musculoskeletal Provider 12/23/23 documented as of this encounter
--- OUTSIDE RECORDS SUMMARY | 2024-07-08 06:33 | XMS_ITS | Encounter Summary ---
Author Organization [place] Address [address] [place] [address] Care Team Providers Care Cutter Grinder Operator Name Role Phone Emiliana Simmons MD Primary Care Provider Cris Smith MD Unavailable [phone] Vick Anne PA-C Unavailable [phone] Vick Anne PA-C Primary Care Provider [phone] Walter Waldrop DO Unavailable [phone] Encounter Details Date Type Department Care Team (Late st Contact Info) Description 08/04/2023 [facility] [address] [place] [address] [place] [address] [place] [address] Social History Tobacco Use Types [...] AM CDT Legal Sex Female 10:35 AM QUALITY CONTROL SUPERVISOR Gender Identity Female 08/28/2018 9:26 AM CDT Sexual Orientation Straight 08/28/2018 9: 26 AM CDT documented as of this encounter Plan of Treatment Not on file documented as of this encounter Visit Diagnoses Not on filedocumented in this encounter Additional Health Concerns Assessment Noted Time PHQ-9 Depression Total Score: 1 04/06/20 16 7:08 AM QUALITY CONTROL SUPERVISOR documented as of this encounter Care Teams Cutter Grinder Operator Relationship Specialty Start Date End Date Emiliana Simmons MD PCP - General Family Practice 01/11/13 12/04/23 Vick Anne PA-C 22434 EMILY LIZAMA [address] PCP - General 12/05/23 Cris Smith MD 420 [facility] 396 [place], [place] [address] Assigned Surgical Provider 07/26/21 Vcik Anne PA-C 23039 EMILY LIZAMA [address] Assigned PCP 09/04/22 [place] [address] JAMLA RAI, [address] [address] Assigned Musculoskeletal Provider 12/23/23 documented as of this encounter
--- OUTSIDE RECORDS SUMMARY | 2024-07-08 06:33 | XMS_ITS | Encounter Summary ---
Author Organization [place] Address [address] [place] [address] Care Team Providers Care Level Vial Grinder Name Role Phone Emiliana Simmons MD Primary Care Provider Emiliana Simmons MD Unavailable + Emiliana Simmons MD Unavailable + Vick Anne PA-C Unavailable + Emiliana Simmons MD Unavailable + Emiliana Simmons MD Unavailable + Iliana Greene CN Unavailable [phone] Cris Smith MD Unavailable [phone] Opal Baumann APRN [facility] Unavailable + Vick Anne PA-C Unavailable + Vick Anne PA-C Primary Care Provider [phone] Walter Waldrop DO Unavailable [phone] Reason for Visit * Reason Comments Home Care/Hospice Encounter Details Date Type Department Care Team (Late st Contact Info) Description 02/26/2016 Documentation Only [facility] [address] [place] [address] Dina Robison DO [address] [place] [address] Home Care/Hospice Social History Tobacco Use Types Packs/Day Years Used Date Smoking Tobacco: Never Smokeless Tobacco: Never Alcohol Use Standard Drinks/Week Comments Yes 0 (1 standard drink = 0.6 oz pur e alcohol) occasionally Comments No Sex and Gender Information Value Date Recorded Sex Assigned at Female 08/28/2018 9:26 AM CDT Legal Sex Female 10: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 TECHNOLOGY TEACHER Gender Identity Female 08/28/2018 9:26 AM CDT Sexual Orientation Straight 08/28/2018 9: 26 AM CDT documented as of this encounter Plan of Treatment Not on file documented as of this encounter Visit Diagnoses Not on filedocumented in this encounter Care Teams Level Vial Grinder Relationship Specialty Start Date End Date Emiliana Simmons MD PCP - General Family Practice 01/11/13 12/04/23 [place] [address] EMILY LIZAMA [address] PCP - Assigned PCP 08/07/17 07/04/18 Vick Anne PA-C 88938 EMILY LIZAMA [address] PCP - General 12/05/23 [place] [address] [address]ILY LIZAMA [address] Assigned PCP 08/07/17 08/05/18 Vick Anne PA-C 62018 EMILY LIZAMA [address] Assigned PCP 08/06/18 04/14/19 [place] [address] [place] [address] Assigned PCP 04/15/19 08/30/20 [place] [address] [place] [address] Assigned PCP 08/31/20 03/05/22 Iliana Greene CNM [address] [place], [place] [address] Assigned OBGYN Provider 03/22/21 Cris Smith MD 420 [facility] 396 [place], [place] [address] Assigned Surgical Provider 07/26/21 Opal Baumann APRN TECHNICAL WRITER [address] [address] [place] [address] Assigned PCP 03/06/22 09/03/22 Vick Anne PA-C [address] [address] [place] [address] Assigned PCP 09/04/22 [place] [address] JAMAL RAI, [address] [address] Assigned Musculoskeletal Provider 12/23/23 documented as of this encounter
[2024-07-08 06:46] VITALS: BP 124/86; PULSE 75; RESP 16; TEMP 36.7; O2SAT 99
[2024-07-08 06:47] VITALS: BP 124/86; PULSE 75; RESP 16; TEMP 36.7
--- OUTSIDE RECORDS SUMMARY | 2024-07-08 06:55 | XMS_ITS | Encounter Summary ---
Author Organization [place] Address [facility] [place] [address] Care Team Providers Care Furnace Mechanic Helper Name Role Phone Emiliana Simmons MD Primary Care Provider Emiliana Simmons MD Unavailable [phone] Emiliana Simmons MD Unavailable +[phone] Vick Anne PA-C Unavailable +[phone] Emiliana Simmons MD Unavailable + Emiliana Simmons MD Unavailable +[phone] Iliana Greene CN Unavailable [phone] Cris Smith MD Unavailable [phone] Opal Baumann APRN [facility] Unavailable + [phone] Vick Anne PA-C Unavailable +[phone] Vick Anne PA-C Primary Care Provider [phone] Walter Waldrop DO Unavailable [phone] Reason for Visit * Reason Onset Date Comments Pt. Information/instruction 01/16/2014 Ongo ing care for child Encounter Details Date Type Department Care Team (Late st Contact Info) Description 01/16/2014 MyC Medical Advice [facility] [address] [place] [address], [address] [place] [address] [place] [address] EMILY LIZAMA [address] Pt. Information/instruct ion (Ongoing care ... Social History Tobacco Use Types Packs/Day Years Used Date Smoking Tobacco: Never Smokeless Tobacco: Never Alcohol Use Standard Drinks/Week Comments Yes 0 (1 standard drink = 0.6 oz pur e alcohol) occasionally Comments Yes Sex and Gender Information Value Date Recorded Sex Assigned at Female 08/28/2018 9:26 AM CDT Legal Sex Female 10:35 AM HAND THERAPIST Gender Identity Female 08/28/2018 9:26 AM CDT Sexual Orientation Straight 08/28/2018 9: 26 AM CDT documented as of this encounter Miscellaneous Notes * Telephone Encounter - Emiliana Simmons MD - 01/17/2014 7:48 AM CDT Please tell them that we definitely do see pediatric patients, and that I would love to see her . Also mention the same day policy of less then 12 yo. Thank you! documented in this encounter Plan of Treatment Not on file documented as of this encounter Visit Diagnoses Not on filedocumented in this encounter Care Teams Furnace Mechanic Helper Relationship Specialty Start Date End Date Emiliana Simmons MD PCP - General Family Practice 01/11/13 12/04/23 [place] [address] EMILY LIZAMA [address] PCP - Assigned PCP 08/07/17 07/04/18 Vick Anne PA-C 58468 EMILY LIZAMA [address] PCP - General 12/05/23 [place] [address] [place] [address] Assigned PCP 08/07/17 08/05/18 Vick Anne PA-C [address] [place] [address] Assigned PCP 08/06/18 04/14/19 [place] [address] [address] [place], [place] [address] Assigned PCP 04/15/19 08/30/20 [place] [address] [address] [place], [place] [address] Assigned PCP 08/31/20 03/05/22 Iliana Greene CNM [address] [place], [place] [address] Assigned OBGYN Provider 03/22/21 Cris Smith MD 420 [facility] 396 [place], [place] [address] Assigned Surgical Provider 07/26/21 Opal Baumann APRN CNP [address] [address] [place], [place] [address] Assigned PCP 03/06/22 09/03/22 Vick Anne PA-C [address] [place] [address] Assigned PCP 09/04/22 [place] [address] JAMAL RAI, [address] [address] Assigned Musculoskeletal Provider 12/23/23 documented as of this encounter
--- OUTSIDE RECORDS SUMMARY | 2024-07-08 06:55 | XMS_ITS | Encounter Summary ---
Author Organization [place] Address [facility] [place] [address] Care Team Providers Care Maintenance Of Way Superintendent Name Role Phone Emiliana Simmons MD Primary Care Provider + Emiliana Simmons MD Unavailable + Emiliana Simmons MD Unavailable + Vick Anne PA-C Unavailable + Emiliana Simmons MD Unavailable + Emiliana Simmons MD Unavailable + Iliana Greene CNM Unavailable [phone] Cris Smith MD Unavailable [phone] Opal Baumann APRN PINSETTER MECHANIC [employer]ATIC Unavailable + Vick Anne PA-C Unavailable + Vick Anne PA-C Primary Care Provider [phone] Walter Waldrop DO Unavailable [phone] Encounter Details Date Type Department Care Team (Late st Contact Info) Description 04/30/2014 [facility] [id number] [place] [address] Dina Robison DO [address] [place] [address] Social History Tobacco Use Types Packs/Day Years Used Date Smoking Tobacco: Never Smokeless Tobacco: Never Alcohol Use Standard Drinks/Week Comments Yes 0 (1 standard drink = 0.6 oz pur e alcohol) occasionally Comments No Sex and Gender Information Value Date Recorded Sex Assigned at Female 08/28/2018 9:26 AM CDT Legal Sex Female 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 AM RETAIL EVENT ASSISTANT Gender Identity Female 08/28/2018 9:26 AM CDT Sexual Orientation Straight 08/28/2018 9: 26 AM CDT documented as of this encounter Plan of Treatment Not on file documented as of this encounter Visit Diagnoses Not on filedocumented in this encounter Care Teams Maintenance Of Way Superintendent Relationship Specialty Start Date End Date Emiliana Simmons MD PCP - General Family Practice 01/11/13 12/04/23 [place] [address] EMILY LIZAMA [id number] PCP - Assigned PCP 08/07/17 07/04/18 Vick Anne PA-C 01293 EMILY LIZAMA [id number] PCP - General 12/05/23 [place] [address] EMILY LIZAMA [id number] Assigned PCP 08/07/17 08/05/18 Vick Anne PA-C 73727 EMILY LIZAMA [id number] Assigned PCP 08/06/18 04/14/19 [place] [address] [place] [address] Assigned PCP 04/15/19 08/30/20 [place] [address] [place] [address] Assigned PCP 08/31/20 03/05/22 Iliana Greene, [facility] [address] [place] [address] Assigned OBGYN Provider 03/22/21 Cris Smith MD [address] [facility] [address] [place], [place] [address] Assigned Surgical Provider 07/26/21 Opal Baumann APRN [employer] [address] [place] [address] Assigned PCP 03/06/22 09/03/22 Vick Anne PA-C [address] [place] [address] Assigned PCP 09/04/22 [place] [address] [address]I, [address] [address] Assigned Musculoskeletal Provider 12/23/23 documented as of this encounter
--- OUTSIDE RECORDS SUMMARY | 2024-07-08 06:56 | XMS_ITS | Encounter Summary ---
Author Organization [place] Address [address] [facility] [place] [address] Care Team Providers Care Fire Adjuster Name Role Phone Emiliana Simmons MD Primary Care Provider Cris Smith MD Unavailable [phone] Vick Anne PA-C Unavailable [phone] Vick Anne PA-C Primary Care Provider [phone] Walter Waldrop DO Unavailable [phone] Reason for Visit * Reason Onset Date Comments Panel Management 08/03/2023 Encounter Details Date Type Department Care Team (Late st Contact Info) Description 08/03/2023 [facility] [address] [place] [address] [place] [address] [place] [address] Panel Management Social History Tobacco [...] AM CDT Legal Sex Female 10:35 AM CRITICAL CARE REGISTERED NURSE Gender Identity Female 08/28/2018 9:26 AM CDT [...] questionnaire to complete Type of outreach: Sent Spotify message. Questions for provider review: None Ameya Brown MA documented in this encounter Plan of Treatment Not on file documented as of this encounter Visit Diagnoses Not on filedocumented in this encounter Additional Health Concerns Assessment Noted Time PHQ-9 Depression Total Score: 1 04/06/20 16 7:08 AM CRITICAL CARE REGISTERED NURSE documented as of this encounter Care Teams Fire Adjuster Relationship Specialty Start Date End Date Troy, Emiliana Gina, MD PCP - General Family Practice 01/11/13 12/04/23 Vick Anne PA-C [address] [place] [address] PCP - General 12/05/23 Cris Smith MD [address] [facility] [address] [place] [address] Assigned Surgical Provider 07/26/21 Vick Anne PA-C [address] [place] [address] Assigned PCP 09/04/22 [place] [address] [address], [address] [address] Assigned Musculoskeletal Provider 12/23/23 documented as of this encounter
--- OUTSIDE RECORDS SUMMARY | 2024-07-08 06:56 | XMS_ITS | Encounter Summary ---
Author Organization [place] Address [facility] [place] [address] Care Team Providers Care Field Consultant Name Role Phone Emiliana Simmons MD Primary Care Provider Iliana Greene CNM Unavailable [phone] Cris Smith MD Unavailable [phone] Opal Baumann APRN SEISMIC PROSPECTING OBSERVER HELPER Unavailable [phone] Vick Anne PA-C Unavailable [phone] Vick Anne PA-C Primary Care Provider [phone] Walter Waldrop DO Unavailable [phone] Encounter Details Date Type Department Care Team (Late st Contact Info) Description 04/28/2022 [facility] [address] [address] Carito Olivares Social History Tobacco [...] AM CDT Legal Sex Female 10:35 AM DOCUMENT COORDINATOR Gender Identity Female 08/28/2018 9:26 AM CDT Sexual Orientation Straight 08/28/2018 9: 26 AM CDT documented as of this encounter Plan of Treatment Not on file documented as of this encounter Visit Diagnoses Not on filedocumented in this encounter Additional Health Concerns Assessment Noted Time PHQ-9 Depression Total Score: 1 04/06/20 16 7:08 AM DOCUMENT COORDINATOR documented as of this encounter Care Teams Field Consultant Relationship Specialty Start Date End Date Emiliana Simmons MD PCP - General Family Practice 01/11/13 12/04/23 Vick Anne PA-C 72587 EMILY LIZAMA [id number] PCP - General 12/05/23 Iliana Greene CNM [address] [place], [place] [id number] Assigned OBGYN Provider 03/22/21 Cris Smith MD [address] [facility] [address] [place], [place] [address] Assigned Surgical Provider 07/26/21 Opal Baumann APRN SEISMIC PROSPECTING OBSERVER HELPER [address] EMILY LIZAMA [id number] Assigned PCP 03/06/22 09/03/22 Vick Anne PA-C 15172 EMILY LIZAMA [id number] Assigned PCP 09/04/22 [place] [address] [address], [address] [address] Assigned Musculoskeletal Provider 12/23/23 documented as of this encounter
--- OUTSIDE RECORDS SUMMARY | 2024-07-08 06:56 | XMS_ITS | Encounter Summary ---
Author Organization [place] Address Pending sale to [facility] [place] [address] Care Team Providers Care Robotics Specialist Name Role Phone Emiliana Simmons MD Primary Care Provider Emiliana Simmons MD Unavailable [phone] Emiliana Simmons MD Unavailable [phone] Iliana Greene CN Unavailable [phone] Cris Smith MD Unavailable [phone] Opal Baumann APRN [facility] Unavailable Vick Anne PA-C Unavailable Vick Anne PA-C Primary Care Provider [phone] Walter Waldrop DO Unavailable [phone] Reason for Visit * Reason Onset Date Comments Refill Request 10/16/2019 Encounter Details Date Type Department Care Team (Late st Contact Info) Description 10/16/2019 Lonnie Rodas [address], [address] [place] [address] Vick Anne PA-C [address] [place] [address] Refill Request Social History Tobacco [...] AM CDT Legal Sex Female 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 Gender Identity Female 08/28/2018 9:26 AM CDT [...] Total Score: 1 04/06/20 16 7:08 AM METAL BONDER documented as of this encounter Care Teams Robotics Specialist Relationship Specialty Start Date End Date Emiliana Simmons MD PCP - General Family Practice 01/11/13 12/04/23 Vick Anne PA-C 10466 EMILY LIZAMA [id number] PCP - General 12/05/23 [place] [address] EMILY LIZAMA [id number] Assigned PCP 04/15/19 08/30/20 [place] [address] EMILY LIZAMA [id number] Assigned PCP 08/31/20 03/05/22 Iliana Greene CN [address] [place], [place] [id number] Assigned OBGYN Provider 03/22/21 Cris Smith MD 420 [facility] 396 [place], [place] [address] Assigned Surgical Provider 07/26/21 Opal Baumann APRN PREFLIGHT INSPECTOR [address] EMILY LIZAMA [id number] Assigned PCP 03/06/22 09/03/22 Vick Anne PA-C 20630 EMILY LIZAMA [id number] Assigned PCP 09/04/22 [place] [address] [address] RAI, [address] [address] Assigned Musculoskeletal Provider 12/23/23 documented as of this encounter
--- OUTSIDE RECORDS SUMMARY | 2024-07-08 06:56 | XMS_ITS | Clinical Summary ---
Author Organization [place] Address [address] [facility] [place] [address] Care Team Providers Care Community Nurse Name Role Phone Cris Smith MD Unavailable [phone] Vick Anne PA-C Unavailable [phone] Vick Anne PA-C Primary Care Provider [phone] Walter Waldrop DO Unavailable [phone] Allergies Active Allergy Reactions Criticality Noted Date Comments Morphine Hcl Hives 07/03/2012 Has had oxy before without problems Medications * This document contains information received from the source organization and may not represent a complete record from that organization. spironolactone (ALDACTONE) 100 MG tablet TAKE ONE TABLET BY MOUTH ONCE DAILY WITH A FULL GLASS OF WATER. 08/27/19 22 Active desogestrel-ethi nyl estradiol (APRI) 0.15-30 MG-MCG tabletIndication s:Acne, unspecified acne type Take 1 tablet by mouth daily 84 tablet 3 11/24/19 24 Active methylPREDNISolo ne (MEDROL DOSEPAK) 4 MG tablet therapy packIndications: Chronic pain of left wrist Follow Package Directions 21 tablet 12/06/19 24 Active albuterol (PROAIR HFA/PROVENTIL HFA/VENTOLIN HFA) 108 (90 Base) MCG/ACT inhalerIndicatio ns:Mild intermittent asthma without complication INHALE 2 PUFFS BY MOUTH EVERY 6 HOURS NEEDED FOR WHEEZE OR FOR SHORTNESS OF BREATH 18 g 2 06/04/19 25 Active valACYclovir (VALTREX) 1000 mg tabletIndication s:Cold sore TAKE 1 TABLET BY MOUTH TWICE A DAY 30 tablet 06/27/19 25 Active valACYclovir (VALTREX) 1000 mg tabletIndication s:Cold sore Take 1 tablet (1,000 mg) by mouth 2 times daily. 30 tablet 01/25/20 24 025 Discontinued Active Problems Problem Noted Date Diagnosed Date Hip pain, right 12/05/2023 Lumbar radiculopathy 12/05/2023 Deviated nasal septum 07/17/2021 Nasal obstruction 07/17/2021 Nasal valve stenosis 07/17/2021 Hypertrophy of inferior nasal turbinate 07/18/19 Tension headache 03/31/2020 Migraine with aura and witho ut status migrainosus, not intractable 03/31/2020 Amenorrhea 02/15/2013 History of PCOS 01/11/2013 Chronic urticaria 07/03/2012 Intermittent asthma 07/03/2012 CARDIOVASCULAR SCREENING; LDL GOAL LESS THAN 160 07/03/2012 Acne 07/03/2012 Other ovarian hyperfunction 12/03/2005 ASCUS with positive high risk HPV cervical Overview (12/05/2023): 04/2009 LSIL 05/08/09 [place]- No dysplasia noted (Care Everywhere) 02/09/10 and 03/15/11 ASCUS pap, + HR HPV type unknown (Care everywhere) 04/06/11 [place]- No diagnostic alterations. (Care Everywhere) 10/27/11: NIL pap, abstracted records. 03/30/12: NIL pap, (Care everywhere) 08/02/13: NIL pap 04/05/16: NIL pap, Neg HR HPV result. Plan cotest in 3 years per provider. 09/01/18 NIL, Neg HPV. Routine screening 11/24/23 NIL pap, neg HPV Resolved Problems Problem Noted Date Diagnosed Date Resolved Date Left wrist pain 12/22/2023 02/19/2024 Indication for care in labor and delivery, antepartum 02/23/2016 03/31/2020 Indication for care in labor or delivery 02/22/2016 03/31/2020 care, third trimester 02/02/2016 03/31/2020 Velamentous insertion of umb ilical cord, third trimester 11/28/2015 03/31/2020 Vaginal delivery 02/25/2014 08/02/2014 Labor and delivery, indication for care 02/24/2014 08/02/2014 Supervision of normal first 01/16/2014 08/02/2014 Rh negative status during 08/14/2013 03/31/2020 Premature ovarian failure 01/15/2013 Nipple discharge 07/03/2012 03/31/2020 Overview (07/03/2012): Work up negative per pt and endo, due to OCPs Hypocalcemia 07/03/2012 03/31/2020 Overview (03/03/2015): Diagnosis updated by automated process. Provider to review and confirm. Encounters Date Type Department Care Team Description [facility] [address] [place] [address] Vick Anne PA-C Medication Refill 06/02/2024 Refill [facility] [address] [place] [address] Opal Baumann APRN LEARNING AND DEVELOPMENT DIRECTOR Medication Refill from Last 3 Months Immunizations Name Administration Dates Next Due COVID-19 MONOVALENT 12+ (Pfizer) 06/12/2020,05/03 HPV 10/27/2011,03/15/2011,02/09/2010 HPV Quadrivalent 10/27/2011,03/15/2011, 0 HepB 12/20/2006,08/21/2004,09/12/2001 Hepatitis B, Peds 12/20/2006,08/21/2004,09/13/19 02 Historical DTP/aP 11/28/1991,03/18/1988,05/30/18 87 Influenza (IIV3) PF 01/05/2012,2010 Influenza Vaccine >6 months,quad, PF ,02/24/2021,01/29/2019,2013,01/05/2012 Influenza, Split Virus, Triv alent, Pf (Fluzone\Fluarix) 03/05/2024 Influenza,INJ,MDCK,PF,Quad >6mo(Flucelvax) 03/10/2023,02/24/2021 MMR 11/28/1991,03/18/1988 Mantoux Tuberculin Skin Test 09/14/2010 OPV, unspecified 06/25/1993, 2,03/18/1988,1986 Poliovirus, inactivated (IPV) 06/25/1993 ,11/28/1991,03/18/1988,1986 Rhogam 11/27/2015,02/26/2014,08/14/2013 TD,PF 7+ (Tenivac) 12/09/1998 TDAP (Adacel,Boostrix) 12/20/2006 TDAP Vaccine (Adacel) 12/20/2006 TDAP Vaccine (Boostrix) 11/27/2015,01/30/2014 Td (Adult), Adsorbed 12/09/1998 Family History Medical History Relation Comments Diabetes Father Pre-diabetes. Heart Disease Father A-Fib Diabetes Maternal Grandfather High cholesterol Maternal Grandfather Prostate Cancer Maternal Grandfather Cancer Maternal Grandmother Brain anery sm High cholesterol Maternal Grandmother Hypertension Maternal Grandmother Respiratory Paternal Grandfather Emphysema Breast Cancer Paternal Grandmother Diabetes Paternal Grandmother Glaucoma Paternal Grandmother Heart Disease Paternal Grandmother CHF Blood Disease Sister 2 thalasemia trait Depression Sister 3 Relation Status Comments Father Alive Maternal Grandfather Alive Maternal Grandmother Alive Mother Alive Paternal Grandfather Paternal Grandmother Sister 1 Alive Sister 2 Sister 3 Social History Tobacco Use Types Packs/Day Years Used Date Smoking Tobacco: Never Passive Smoke Exposure: Never Smokeless Tobacco: Never Tobacco Cessation:Counseling Given: Not Answered Alcohol Use Standard Drinks/Week Comments Yes 0 (1 standard drink = 0.6 oz pur e alcohol) occasionally Social Connection and Isolation Panel [NHANES] A nswer Date Recorded Frequency of Communication with Friends and Fami ly Not on file 11/24/2023 How often do you get together with friends or re latives? Once a week 11/24/2023 Attends [employer] Services Not on file 11/23 Active Member of Clubs or Organizations Not on f ile 11/24/2023 Attends Club or Organization Meetings Not on westley e 11/24/2023 Marital Status Not on file 11/24/2023 PHQ-2 Answer Date Recorded PHQ-2 Score 0 08/04/2023 [facility] - Occupational Stress Questionnaire Answer Date Recorded Do you feel stress - tense, restless, nervous, or anxious, or unable to sleep at night because your mind is troubled all the time - these days? Not at all 11/24/2023 Exercise Vital Sign Answer Date Recorde d On average, how many days pe r week do you engage in moderate to strenuous exercise (like a brisk walk)? 4 days Minutes of Exercise per Session Not on file 11/24/2023 Adolescent Education Answer Date Record ed Getting School Help Needed Not on file 01/21 Food Insecurity Answer Date Recorded Within the past 12 months, d id you worry that your food would run out before you got money to buy more? No 11/24/2023 Within the past 12 months, d id the food you bought just not last and you didn t have money to get more? No 11/24/2023 Housing Stability Answer Date Recorded Do you have housing? (Housin g is defined as stable permanent housing and does not include staying ouside in a car, in a tent, in an abandoned building, in an overnight chcf, or couch-surfing.) No 11/24/2023 Are you worried about losing your housing? No 11/24/2023 Financial Resource Strain Answer Date R ecorded Within the past 12 months, h ave you or your family members you live with been unable to get utilities (heat, electricity) when it was really needed? No 11/24/2023 Transportation Needs Answer Date Record ed Within the past 12 months, h as lack of transportation kept you from medical appointments, getting your medicines, non-medical meetings or appointments, work, or from getting things that you need? No 11/24/2023 Interpersonal Safety Answer Date Record ed Do you feel physically and e motionally safe where you currently live? Yes 12/22/2023 Within the past 12 months, h ave you been hit, slapped, kicked or otherwise physically hurt by someone? No 12/22/2023 Within the past 12 months, h ave you been humiliated or emotionally abused in other ways by your partner or ex-partner? 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 Gender Identity Female 08/28/2018 9:26 AM CDT Sexual Orientation Straight 08/28/2018 9: 26 AM CDT Last Filed Vital Signs Vital Sign Reading Time Taken Comments Blood Pressure 114/78 12/06/2023 9:14 AM CDT Pulse 78 12/06/2023 9:14 AM CDT Temperature 37.1 C (98.8 F) 11/24/2023 12:58 PM CDT Respiratory Rate 16 11/24/2023 12:58 PM CDT Oxygen Saturation 100% 11/24/2023 12:58 PM CDT Inhaled Oxygen Concentration - - Weight 68.9 kg (152 lb) 12/06/2023 9:14 AM CDT Height 162.6 cm (5' 4) 12/06/2023 9:14 AM CDT Body Mass Index 26.09 12/06/2023 9:14 AM CDT Plan of Treatment Health Maintenance Due Date Last Done Comments Pneumococcal Vaccine: Pediatrics (0 to 5 Years) and At-Risk Patients (6 to 49 Years) (1 of 2 - PCV) 2005 ASTHMA ACTION PLAN 04/08/2017 04/08/2016, 0 08/02/2014, 07/11/2012 COVID-19 Vaccine ( season) 2024 02/24/2021, 06/12/2020, 05/23/2020 PHQ-2 (once per calendar year) 2024 08/04/2023, 08/31/2022, 09/22/2021, Additional history exists ASTHMA CONTROL TEST 05/26/2024 11/24/2023, 08/04/2023, 04/28/2022, Additional history exists ANNUAL REVIEW OF HM ORDERS 11/23/202411/23, 08/31/2022, 09/22/2021, Additional history exists YEARLY PREVENTIVE VISIT 11/23/2024 11/24/19, 08/31/2022, 09/22/2021, Additional history exists DTAP/TDAP/TD IMMUNIZATION (9 - Td or Tdap) 11/26/2025 11/27/2015, 01/30/2014, 12/20/2006, Additional history exists GLUCOSE 11/23/2026 11/24/2023, 2 07/2021, 08/28/2020, Additional history exists ADVANCE CARE PLANNING 11/23/2028 11/24/2023 , 12/24/2021, 08/28/2020 HPV TEST 11/23/2028 11/24/2023, 05/0 06/2018, 04/05/2016, Additional history exists PAP 11/23/2028 11/24/2023, 10/31, 09/01/2018, Additional history exists ZOSTER IMMUNIZATION (1 of 2) 01/29/2036 HEPATITIS B IMMUNIZATION Completed 007, 12/20/2006, 08/21/2004, Additional history exists HPV IMMUNIZATION Completed 10/27/2011, , 03/15/2011, Additional history exists HEPATITIS C SCREENING Completed 01/07/2022 , 08/28/2020, 12/03/2005 HIV SCREENING Completed 01/07/2022, 09/0 11/2021, 08/26/2015, Additional history exists INFLUENZA VACCINE Completed 03/05/2024, , 02/17/2022, Additional history exists MENINGITIS IMMUNIZATION Aged Out No l onger eligible based on patient's age to complete this topic Medical Devices Implanted Type Area Wellness Rn Device Identifier Shelf Expiration Date Model / Serial / Lot Alloderm Select Tissue Matrix Piece Size [id number]; Thickeness: X-Thin 0.55 Mm +/- 0.25mm Implanted:Qty: 1 on 01/07/2022 by Cris Smith MD at [facility] N/A: Nose 03/31/2023 [id number] / / [id number] Procedures Procedure Name Priority Date/Time Associated Diagnosis Comments BASIC METABOLIC PANEL Routine 11/24/2023 1:23 PM CDT Routine general medical examination at a [facility] care facility HPV AND GYNECOLOGIC CYTOLOGY PANEL Routine 11/24/2023 1:13 PM CDT Cervical cancer screening HIV RAPID ANTIBODY SCREEN STAT 01/07/2022 2:24 PM CDT Exposure to blood or body fluid HEPATITIS C RNA, QUANTITATIVE BY PCR STAT 01/07/2022 2:24 PM CDT Exposure to blood or body fluid ASTHMA ACTION PLAN Routine 04/08/2016 3: 10 PM CARDIAC CATH TECHNICIAN from Last 3 Months or Most Recently Relevant to Health Maintenance Results * Basic metabolic panel (Ca, Cl, CO2, Creat, Gluc, K, Na, BUN) (11/24/2023 1:23 PM CDT) Sodium 138 135 - 145 mmol/L 11/24/2023 10:29 PM CDT [facility] Potassium 4.3 3.4 - 5.3 mmol/L 11/24/2023 10:29 PM CDT [facility] Chloride 102 98 - 107 mmol/L 11/24/2023 10:29 PM CDT [facility] Carbon Dioxide (CO2) 26 22 - 29 mmol/L 11/24/2023 10:29 PM CDT [facility] Anion Gap 10 7 - 15 mmol/L 11/24/2023 10:29 PM CDT [facility] Urea Nitrogen 11.9 6.0 - 20.0 mg/dL 11/24/2023 10:29 PM CDT [facility] Creatinine 0.78 0.51 - 0.95 mg/dL 11/24/2023 10:29 PM CDT [facility] GFR Estimate >90 >60 mL/min/1.7 3m2 11/24/2023 10:29 PM CDT [facility] Comment:eGFR calculated usin g 2020 CKD-EPI equation. Calcium 9.6 8.8 - 10.4 mg/dL 11/24/2023 10:29 PM CDT [facility] Comment:Reference intervals for this test were updated on 11/15/2023 to reflect our healthy population more accurately. There may be differences in the flagging of prior results with similar values performed with this method. Those prior results can be interpreted in the context of the updated reference intervals. Glucose 89 70 - 99 mg/dL 11/24/2023 10:29 PM CDT [facility] Patient Fasting > 8hrs? Yes 11/24/2023 10:29 PM CDT LABORATORY Blood BLOOD SPECIMEN / Unknown Venipuncture / Unknown 11/24/2023 1:23 PM CDT 11/24/2023 1:23 PM CDT Vick Anne PA-C LAB - BLOOD ORDERABLES Patt l Result LABORATORY [facility] [place] [facility] [address] [facility], [address] [place] [phone] * Pap Screen with HPV - Recommended Age 30 - 65 Years (11/24/2023 1:13 PM CDT) Human Papilloma Virus 16 DNA Negative Negative 12/02/2023 10:58 PM CDT [facility] Human Papilloma Virus 18 DNA Negative Negative 12/02/2023 10:58 PM CDT [facility] Human Papilloma Virus Other Negative Negative 12/02/2023 10:58 PM CDT [facility] FINAL DIAGNOSIS This patient's sample is negative for high risk HPV DNA. METHODOLOGY: The MagTag system uses automated extraction, simultaneous amplification of HPV (E6/E7 oncogenes) and beta-globin, followed by real time detection of fluorescent labeled HPV and beta globin using specific oligonucleotide probes. The test specifically identifies types HPV 16 DNA and HPV 18 DNA while concurrently detecting the rest of the high risk types (31, 33, 35, 39, 45, 51, 52, 56, 58, 59, 66 or 68). COMMENTS: This test is not intended for use as a screening device for woman under age 30 with normal cervical cytology. Results should be correlated with cytologic and histologic findings. Close clinical follow up is recommended. 12/02/2023 10:58 PM CDT MOLECULAR DIAGNOSTICS Brushing ENDOCERVICAL STRUCTURE / Unknown Non-blood Collection / Unknown 11/24/2023 1:13 PM CDT 11/24/2023 1:51 PM CDT Vick nAne PA-C LAB - BLOOD ORDERABLES Patt l Result [facility] Specialty Lab [address] [facility], [address] [place] [phone], [facility] MOLECULAR DIAGNOSTICS Molecular Diagnostics [address] [facility], [address] [place] [phone], [facility] * HIV Rapid Antibody Screen (01/07/2022 2:24 PM CDT) HIV-1/HIV-2 Antibody Non Reactive Non Reactive LUIS F 01/07/2022 5:22 PM CDT [facility] HIV1 P24 Antigen Non Reactive Non Reactive LUIS F 01/07/2022 5:22 PM CDT [facility] HIV Interpretation LUIS F 01/07/2022 5:22 PM CDT [facility] Comment:No HIV-1 or HIV-2 an tibodies or HIV-1 p24 antigen were detected. Blood STRUCTURE OF RIGHT UPPER LIMB / Unknown Venipuncture / Unknown 01/07/2022 2:24 PM CDT 01/07/2022 2:30 PM CDT Narrative [facility] - 01/07/2022 5:22 PM CDT All positive rapid HIV 1/2 Ag/Ab samples need to be confirmed by a second HIV 1/2 Ag/Ab Combination test. us Clay Quarles MD LAB - BLOOD ORDERABLES F inal Result [facility] [place] [facility] [address] [facility], [address] [address], [facility] [phone] * Hepatitis C RNA, Quantitative by PCR (01/07/2022 2:24 PM CDT) Pathologist [facility] Hepatitis C RNA IU/mL Not Detected Not Detected IU/mL 01/08/2022 6:25 PM CDT [facility] Blood STRUCTURE OF RIGHT UPPER LIMB / Unknown Venipuncture / Unknown 01/07/2022 2:24 PM CDT 01/07/2022 2:30 PM CDT Narrative [facility] - 01/08/2022 6:25 PM CDT The JUDY AmpliPrep/JUDY TaqMan HCV test is a FDA-approved in vitro nucleic acid amplification test for the quantitation of HCV DNA in human plasma (EDTA plasma) or serum using the JUDY AmpliPrep instrument for automated viral nucleic acid extraction and the JUDY TaqMan for the automated real-time PCR amplification and detection of viral nucleic acid target. Titer results are reported in International Units/mL (IU/mL) using the 1st WHO International standard for HBV for nucleic acid amplification assays. us Clay Quarles MD LAB - BLOOD ORDERABLES F inal Result [facility]ORAT[facility] Inf. Diseases Diag. Lab [address] [facility], [address] [place] [address], [facility] [phone] from Last 3 Months or Most Recently Relevant to Health Maintenance Insurance [facility] CHO[facility] CHO[facility] CHO[facility] Care Teams Community Nurse Relationship Specialty Start Date End Date Vick Anne PA-C [address] [place] [address] PCP - General 12/05/23 Cris Smith MD [address] [place] [address] [address] [place] [address] Assigned Surgical Provider 07/26/21 Vick Anne PA-C [address] [place] [address] Assigned PCP 09/04/22 [place] [address] [address], [address] [address] Assigned Musculoskeletal Provider 12/23/23
--- OUTSIDE RECORDS SUMMARY | 2024-07-08 06:56 | XMS_ITS | Encounter Summary ---
Author Organization [facility] Address [address] [place] [address] Care Team Providers Care Computer Operations Technician Name Role Phone Emiliana Simmons MD Primary Care Provider Emiliana Simmons MD Unavailable + Emiliana Simmons MD Unavailable + Vick Anne PA-C Unavailable + Emiliana Simmons MD Unavailable + Emiliana Simmons MD Unavailable + Iliana Greene CN Unavailable [phone] Cris Smith MD Unavailable [phone] Opal Baumann APRN [facility] Unavailable + Vick Anne PA-C Unavailable + Vick Anne PA-C Primary Care Provider [phone] Walter Waldrop DO Unavailable [phone] Reason for Visit * Reason Comments Home Care/Hospice Encounter Details Date Type Department Care Team (Late st Contact Info) Description 02/26/2016 Documentation Only [facility] [address] [place] [phone] Dina Robison DO [address] [place] [address] Home Care/Hospice Social History Tobacco Use Types Packs/Day Years Used Date Smoking Tobacco: Never Smokeless Tobacco: Never Alcohol Use Standard Drinks/Week Comments Yes 0 (1 standard drink = 0.6 oz pur e alcohol) occasionally Comments No Sex and Gender Information Value Date Recorded Sex Assigned at Female 08/28/2018 9:26 AM CDT 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 Gender Identity Female 08/28/2018 9:26 AM CDT Sexual Orientation Straight 08/28/2018 9: 26 AM CDT documented as of this encounter Plan of Treatment Not on file documented as of this encounter Visit Diagnoses Not on filedocumented in this encounter Care Teams Computer Operations Technician Relationship Specialty Start Date End Date Emiliana Simmons MD PCP - General Family Practice 01/11/13 12/04/23 [place] [address] [address] [place] [address] PCP - Assigned PCP 08/07/17 07/04/18 Vick Anne PA-C [address] [place] [address] PCP - General 12/05/23 [place] [address] [address] [address] Assigned PCP 08/07/17 08/05/18 Vick Anne PA-C [address] [place] [address] Assigned PCP 08/06/18 04/14/19 [place] [address] [place] [address] Assigned PCP 04/15/19 08/30/20 [place] [address] [place] [address] Assigned PCP 08/31/20 03/05/22 Iliana Greene CNM [address] [place], [place] [id number] Assigned OBGYN Provider 03/22/21 Cris Smith MD [address] [facility] [address] [place], [place] [address] Assigned Surgical Provider 07/26/21 Opal Baumann APRN [employer]OE REPAIRMAN [address] [address] [place] [id number] Assigned PCP 03/06/22 09/03/22 Vick Anne PA-C [address] [place] [address] Assigned PCP 09/04/22 [place] [address] [address], [address] [address] Assigned Musculoskeletal Provider 12/23/23 documented as of this encounter
--- OUTSIDE RECORDS SUMMARY | 2024-07-08 06:56 | XMS_ITS | Encounter Summary ---
Author Organization [facility] Address [facility] [place] [address] Care Team Providers Care Medical Device Engineer Name Role Phone Emiliana Simmons MD Primary Care Provider Emiliana Simmons MD Unavailable [phone] Emiliana Simmons MD Unavailable [phone] Vick Anne PA-C Unavailable + Emiliana Simmons MD Unavailable + Emiliana Simmons MD Unavailable [phone] Iliana Greene CN Unavailable [phone] Cris Smith MD Unavailable [phone] Opal Baumann APRN [facility] Unavailable + [phone] Vick Anne PA-C Unavailable [phone] Vick Anne PA-C Primary Care Provider [phone] Walter Waldrop DO Unavailable [phone] Reason for Visit * Reason Onset Date Comments Breast Problem 08/12/2014 Mastitis follow up Encounter Details Date Type Department Care Team (Late st Contact Info) Description 08/12/2014 [facility] [address], [address] [place] [address] [place] [address] [address] [id number] Breast Problem (Mastitis follow up) Social History Tobacco Use Types Packs/Day Years Used Date Smoking Tobacco: Never Smokeless Tobacco: Never Alcohol Use Standard Drinks/Week Comments Yes 0 (1 standard drink = 0.6 oz pur e alcohol) occasionally Comments No Sex and Gender Information Value Date Recorded Sex Assigned at Female 08/28/2018 9:26 AM CDT Legal 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 Gender Identity Female 08/28/2018 9:26 AM [...] on filedocumented in this encounter Care Teams Medical Device Engineer Relationship Specialty Start Date End Date Emiliana Simmons MD PCP - General Family Practice 01/11/13 12/04/23 [place] [address] [address] [address] PCP - Assigned PCP 08/07/17 07/04/18 Vick Anne PA-C [address] [place] [address] PCP - General 12/05/23 [place] [address] [place] [address] Assigned PCP 08/07/17 08/05/18 Vick Anne PA-C [address] [place] [address] Assigned PCP 08/06/18 04/14/19 [place] [address] [address] [place], [place] [id number] Assigned PCP 04/15/19 08/30/20 [place] [address] [address] [place], [place] [id number] Assigned PCP 08/31/20 03/05/22 Iliana Greene CNM [address] [place], [place] [id number] Assigned OBGYN Provider 03/22/21 Cris Smith MD [address] [facility] [address] [place], [place] [id number] Assigned Surgical Provider 07/26/21 Opal Baumann APRN [facility] [address] [address] [place], [place] [phone] Assigned PCP 03/06/22 09/03/22 Vick Anne PA-C [address] [place] [address] Assigned PCP 09/04/22 [place] [address] [address], [address] [address] Assigned Musculoskeletal Provider 12/23/23 documented as of this encounter
--- OUTSIDE RECORDS SUMMARY | 2024-07-08 06:56 | XMS_ITS | Encounter Summary ---
Author Organization [place] Address [address] [facility] [place] [address] Care Team Providers Care Poolroom/Poolhall Manager Name Role Phone Emiliana Simmons MD Primary Care Provider Cris Smith MD Unavailable [phone] Vick Anne PA-C Unavailable [phone] Vick Anne PA-C Primary Care Provider [phone] Walter Waldrop DO Unavailable [phone] Encounter Details Date Type Department Care Team (Late st Contact Info) Description 08/04/2023 [facility] [address] [place] [address] [place] [address] [place] [address] Social History Tobacco Use Types [...] AM CDT Legal Sex Female 10:35 AM RADIOLOGY ORDERLY Gender Identity Female 08/28/2018 9:26 AM CDT Sexual Orientation Straight 08/28/2018 9: 26 AM CDT documented as of this encounter Plan of Treatment Not on file documented as of this encounter Visit Diagnoses Not on filedocumented in this encounter Additional Health Concerns Assessment Noted Time PHQ-9 Depression Total Score: 1 04/06/20 16 7:08 AM RADIOLOGY ORDERLY documented as of this encounter Care Teams Poolroom/Poolhall Manager Relationship Specialty Start Date End Date Emiliana Simmons MD PCP - General Family Practice 01/11/13 12/04/23 Vick Anne PA-C 47171 EMILY LIZAMA [address] PCP - General 12/05/23 Cris Smith MD [address] [facility] 396 [place], [place] [address] Assigned Surgical Provider 07/26/21 Vick Anne PA-C 14531 EMILY LIZAMA [address] Assigned PCP 09/04/22 [place] [address] [address] RAI, [address] [address] Assigned Musculoskeletal Provider 12/23/23 documented as of this encounter
--- OUTSIDE RECORDS SUMMARY | 2024-07-08 06:56 | XMS_ITS | Encounter Summary ---
Author Organization [place] Address [facility] [address] Care Team Providers Care Rfid Manager Name Role Phone Emiliana Simmons MD Primary Care Provider Emiliana Simmons MD Unavailable [phone] Iliaan Greene CN Unavailable + [phone] Cris Smith MD Unavailable [phone] Opal Baumann APRN PLANT CONTROL AIDE Unavailable [phone] Vick Anne PA-C Unavailable [phone] Vick Anne PA-C Primary Care Provider [phone] Walter Waldrop DO Unavailable [phone] Encounter Details Date Type Department Care Team (Late st Contact Info) Description 01/11/2021 [facility] [place] [address] [place] [address] [place] [address] [place] [address] Social History Tobacco Use Types [...] AM CDT Legal Sex Female 10:35 AM MACHINE STRAW HAT PRESSER Gender Identity Female 08/28/2018 9:26 AM CDT [...] Total Score: 1 04/06/20 16 7:08 AM MACHINE STRAW HAT PRESSER documented as of this encounter Care Teams Rfid Manager Relationship Specialty Start Date End Date Emiliana Simmons MD PCP - General Family Practice 01/11/13 12/04/23 Vick Anne PA-C 87460 EMILY LIZAMA [address] PCP - General 12/05/23 [place] [address] EMILY LIZAMA [address] Assigned PCP 08/31/20 03/05/22 Iliana Greene CNM [address] [place] [address] Assigned OBGYN Provider 03/22/21 Cris Smith MD [address] [facility] 396 [place] [address] Assigned Surgical Provider 07/26/21 Opal Baumann APRN PLANT CONTROL AIDE [address] EMILY LIZAMA [address] Assigned PCP 03/06/22 09/03/22 Vick Anne PA-C 02401 EMILY LIZAMA [address] Assigned PCP 09/04/22 [place] [address] JAM[address] RAI, [address] [address] Assigned Musculoskeletal Provider 12/23/23 documented as of this encounter
--- OUTSIDE RECORDS SUMMARY | 2024-07-08 06:56 | XMS_ITS | Encounter Summary ---
Author Organization [place] Address [address] [place] [address] Care Team Providers Care Power Plant Inspector Name Role Phone Emiliana Simmons MD Primary Care Provider Cris Smith MD Unavailable [phone] Vick Anne PA-C Unavailable [phone] Vick Anne PA-C Primary Care Provider [phone] Walter Waldrop DO Unavailable [phone] Encounter Details Date Type Department Care Team (Late st Contact Info) Description 10/12/2023 [facility] Medical Advice [address] [address] Janice Simons Social History Tobacco Use Types Packs/Day Years [...] AM CDT Legal Sex Female 10:35 AM STRIP DEBURRER Gender Identity Female 08/28/2018 9:26 AM CDT Sexual Orientation Straight 08/28/2018 9: 26 AM CDT documented as of this encounter Plan of Treatment Not on file documented as of this encounter Visit Diagnoses Not on filedocumented in this encounter Additional Health Concerns Assessment Noted Time PHQ-9 Depression Total Score: 1 04/06/20 16 7:08 AM STRIP DEBURRER documented as of this encounter Care Teams Power Plant Inspector Relationship Specialty Start Date End Date Emiliana Simmons MD PCP - General Family Practice 01/11/13 12/04/23 Vick Anne PA-C [address] [address] [facility] [address] PCP - General 12/05/23 Cris Smith MD [address] [facility] [address] [place] [address] Assigned Surgical Provider 07/26/21 Vick Anne PA-C [address] [place] [address] Assigned PCP 09/04/22 [place] [address] [address]AM[address] RAI, [address] [address] Assigned Musculoskeletal Provider 12/23/23 documented as of this encounter
--- OUTSIDE RECORDS SUMMARY | 2024-07-08 06:56 | XMS_ITS | Encounter Summary ---
Author Organization [place] Address [facility] [place] [address] Care Team Providers Care Medical Equipment Technician Name Role Phone Emiliana Simmons MD Primary Care Provider Emiliana Simmons MD Unavailable [phone] Emiliana Simmons MD Unavailable +[phone] Iliana Greene CN Unavailable [phone] Cris Smith MD Unavailable [phone] Opal Baumann APRN [facility] Unavailable + [phone] Vick Anne PA-C Unavailable [phone] Vick Anne PA-C Primary Care Provider [phone] Walter Waldrop DO Unavailable [phone] Encounter Details Date Type Department Care Team (Late st Contact Info) Description 06/25/2019 [facility] [place] [address], [address] [place] [address] Randi Brantley Social History Tobacco [...] AM CDT Legal Sex Female 10:35 AM FORMING DEPARTMENT END FINDER Gender Identity Female 08/28/2018 9:26 AM CDT Sexual Orientation Straight 08/28/2018 9: 26 AM CDT documented as of this encounter Plan of Treatment Not on file documented as of this encounter Visit Diagnoses Not on filedocumented in this encounter Additional Health Concerns Assessment Noted Time PHQ-9 Depression Total Score: 1 04/06/20 16 7:08 AM FORMING DEPARTMENT END FINDER documented as of this encounter Care Teams Medical Equipment Technician Relationship Specialty Start Date End Date Emiliana Simmons MD PCP - General Family Practice 01/11/13 12/04/23 Vick Anne PA-C 03202 EMILY LIZAMA [address] PCP - General 12/05/23 [place] [address] EMILY LIZAMA [address] Assigned PCP 04/15/19 08/30/20 [place] [address] EMILY LIZAMA [id number] Assigned PCP 08/31/20 03/05/22 Iliana Greene CNM 2945 [place] [address] Assigned OBGYN Provider 03/22/21 Cris Smith MD 420 [facility] 396 [place], [place] [address] Assigned Surgical Provider 07/26/21 Opal Baumann APRN AIRPLANE CHARTER CLERK [address] EMILY LIZAMA [address] Assigned PCP 03/06/22 09/03/22 Vick Anne PA-C 85735 EMILY LIZAMA [address] Assigned PCP 09/04/22 [place] [address] JAM[address] RAI, [address] [address] Assigned Musculoskeletal Provider 12/23/23 documented as of this encounter
--- OUTSIDE RECORDS SUMMARY | 2024-07-08 06:56 | XMS_ITS | Clinical Summary ---
Author Organization [facility] Address [address] [place] [address] Care Team Providers Care Doughnut Dough Mixer Name Role Phone Pcp, No Primary Care [...] sprayIndications:A llergic rhinitis, cause unspecified Inhale 1 [place] into both nostrils once daily. 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 BV 05/12: NIL 03/12: ASCUS +HPV Nipple discharge 01/18/2008 Overview (03/15/2011): Prolactin slightly elevated 01/07 - saw executive administrative asst who followed and determined was side effect of control; no further f/u needed. pcos 12/03/2005 ASTHMA NOS W/O STATUS ASTHMATICUS 03/28/2001 ACNE NEC 01/11/2000 Resolved Problems Problem Noted Date Diagnosed Date Resolved Date Acute hypokalemia 07/13/2010 03/15/2011 Acidosis, metabolic 07/13/2010 03/15/20 11 Palpitations 06/12/2009 03/15/2011 Overview (06/17/2009): Saw Dr. Valdez- felt to be [facility] Irregular menstrual cycle 01/11/2000 Immunizations Immunization [...] on file Legal Sex Female 5:24 AM CONTACT LENS FLASHING PUNCHER Gender Identity Not on file Sexual Orientation [...] Comments Blood Pressure 100/70 03/30/2012 4:15 PM CONTACT LENS FLASHING PUNCHER Pulse 98 03/30/2012 4:15 PM CONTACT LENS FLASHING PUNCHER Temperature 36.8 C (98.3 F) 02/15/2011 8:58 AM CDT Respiratory Rate 16 07/15/2010 11:59 AM CDT Oxygen Saturation 100% 08/11/2011 4:02 PM CDT Inhaled Oxygen Concentration - - Weight 53.7 kg (118 lb 6.4 oz) 03/30/2012 4:15 P M CONTACT LENS FLASHING PUNCHER Height 162.6 cm (5' 4) 03/30/2012 4:15 PM CONTACT LENS FLASHING PUNCHER Body Mass Index 20.32 03/30/2012 4:15 PM CONTACT LENS FLASHING PUNCHER Plan of Treatment Health Maintenance Due Date [...] Procedure Name Priority Date/Time Associated Diagnosis Comments YARDAGE CALLER THIN PREP PAP DIAGNOSTIC IMAGED Routine 03/30/2012 5:20 PM CONTACT LENS FLASHING PUNCHER LGSIL on Pap smear ANTI HIV 1/2 Early AM 07/15/2010 8:30 AM CDT ANTI HCV Routine 12/03/2005 2:57 PM CDT Screening Exam Venereal Disease from Last 3 Months or Most Recently Relevant to Health Maintenance Results * YARDAGE CALLER THIN PREP PAP DIAGNOSTIC IMAGED (03/30/2012 5:20 PM CONTACT LENS FLASHING PUNCHER) CYTOLOGY CYTOPATHOLOGY REPORT [facility] Status: Final Status [id number] CLINICAL INFORMATION Last Date of LMP :03/08/12 Last Pap Date :10/27/2011 Last Pap Result :LSIL ABN Damon/Bx Past 5 YRS :LSIL Hormone Usage :BCP/OCP/Patch/Rin g Menstrual Status :Regular Periods Damon/Bx done today :No Additional Information :None given [...] malignant lesions. COLLECTED:03/30/12 ACCESSIONED: 04/01/12 SIGNED: 04/06/12 [facility] PAP [place] CODE NIL [facility] Tissue specimen (specimen) (Cervical/Vagina l) 03/30/2012 5:20 PM CONTACT LENS FLASHING PUNCHER 03/30/2012 5:19 PM CONTACT LENS FLASHING PUNCHER us Edie Orr MD PATHOLOGY/CYTOLOGY Final Resul t [facility] [place]NAL ZIP [address] [place] [address] * ANTI HIV 1/2 (07/15/2010 8:30 AM CDT) ANTI HIV 1/2 Non-reacti ve [facility] Blood specimen (specimen) BLOOD SPECIMEN / Unknown 07/15/2010 8:30 AM CDT 07/14/2010 10:02 PM CDT us Gonzalo Nix MD SEND OUTS Final Result [facility] INTERNAL ZIP [address] [place] [address] * ANTI HCV (12/03/2005 2:57 PM CDT) ANTI HCV Non-reactiv e [facility] Blood specimen (specimen) BLOOD SPECIMEN / Unknown 12/03/2005 2:57 PM CDT 12/03/2005 2:55 PM CDT Narrative [facility] - 12/08/2005 8:31 AM CDT Testing Performed By [place], [place] us Silvia Pate MD SEND OUTS F inal Result [facility] [address] [place] [address] from Last 3 Months or Most Recently Relevant to [place] [address] Advance Directives * Full Code (Latest Code Status on File) Date Activated Date Inactivated Comments 07/13/2010 4:35 PM 07/15/2010 4:18 PM Care Teams Doughnut Dough Mixer Relationship Specialty Start Date End Date Pcp, No . PCP - General 06/25/16
--- OUTSIDE RECORDS SUMMARY | 2024-07-08 06:56 | XMS_ITS | Encounter Summary ---
Author Organization [place] Address [address] [facility] [place] [address] Care Team Providers Care Forestry Consultant Name Role Phone Cris Smith MD Unavailable [phone] Vick Anne PA-C Unavailable [phone] Vick Anne PA-C Primary Care Provider [phone] Walter Waldrop DO Unavailable [phone] Reason for Visit * Reason Comments Medication Refill Encounter Details Date Type Department Care Team (Late st Contact Info) Description 06/02/2024 Refill [facility] [address] [place] [address] Opal Baumann APRN [facility] [address] [place] [address] Medication Refill Social History Tobacco Use Types Packs/Day Years Used Date Smoking Tobacco: Never Passive Smoke Exposure: Never Smokeless Tobacco: Never Alcohol Use Standard Drinks/Week Comments Yes 0 (1 standard drink = 0.6 oz pur e alcohol) occasionally Social Connection and Isolation Panel [NHANES] A nswer Date Recorded Frequency of Communication with Friends and Fami ly Not on file 11/24/2023 How often do you get together with friends or re latives? Once a week 11/24/2023 Attends Baptism Services Not on file 11/23 Active Member of Clubs or Organizations Not on f ile 11/24/2023 Attends Club or Organization Meetings Not on westley e 11/24/2023 Marital Status Not on file 11/24/2023 PHQ-2 Answer Date Recorded PHQ-2 Score 0 08/04/2023 [facility] - Occupational Stress Questionnaire Answer Date Recorded [...] Answer Date Recorded Do you have housing? (Cecilio g is defined as stable permanent housing and does not include staying ouside in a car, in a tent, in an abandoned building, in an overnight jail, or couch-surfing.) No 11/24/2023 Are you worried [...] AM CDT Legal Sex Female 10:35 AM SENIOR JAVA WEB DEVELOPER Gender Identity Female 08/28/2018 9:26 AM CDT Sexual Orientation Straight 08/28/2018 9: 26 AM CDT documented as of this encounter Plan of Treatment Not on file documented as of this encounter Visit Diagnoses Diagnosis Mild intermittent asthma without complication Unspecified asthma documented in this encounter Additional Health Concerns Assessment Noted Time PHQ-9 Depression Total Score: 1 04/06/20 16 7:08 AM SENIOR JAVA WEB DEVELOPER documented as of this encounter Care Teams Forestry Consultant Relationship Specialty Start Date End Date Vick Anne PA-C [address] [place] [address] PCP - General 12/05/23 Cris Smith MD [address] [facility] [address] [place], [place] [address] Assigned Surgical Provider 07/26/21 Vick Anne PA-C [address] [place] [address] Assigned PCP 09/04/22 [place] [address] [address] RAI, [address] [address] Assigned Musculoskeletal Provider 12/23/23 documented as of this encounter
--- OUTSIDE RECORDS SUMMARY | 2024-07-08 06:56 | XMS_ITS | Encounter Summary ---
Author Organization [place] Address [address] [facility] [place] [address] Care Team Providers Care Heat Set Operator Name Role Phone Emiliana Simmons MD Primary Care Provider Cris Smith MD Unavailable [phone] Vick Anne PA-C Unavailable [phone] Vick Anne PA-C Primary Care Provider [phone] Walter Waldrop DO Unavailable [phone] Encounter Details Date Type Department Care Team (Late st Contact Info) Description 08/03/2023 [facility] Advice [address] [address] Ameya Brown MA Social History Tobacco Use Types Packs/Day [...] AM CDT Legal Sex Female 10:35 AM BALLISTICS EXPERT Gender Identity Female 08/28/2018 9:26 AM CDT Sexual Orientation Straight 08/28/2018 9: 26 AM CDT documented as of this encounter Plan of Treatment Not on file documented as of this encounter Visit Diagnoses Not on filedocumented in this encounter Additional Health Concerns Assessment Noted Time PHQ-9 Depression Total Score: 1 04/06/20 16 7:08 AM BALLISTICS EXPERT documented as of this encounter Care Teams Heat Set Operator Relationship Specialty Start Date End Date Emiliana Simmons MD PCP - General Family Practice 01/11/13 12/04/23 Vick Anne PA-C [address] [place] [address] PCP - General 12/05/23 Cris Smith MD 420 [facility] 396 [place] [address] Assigned Surgical Provider 07/26/21 Vick Anne PA-C [address] [place] [address] Assigned PCP 09/04/22 [place] [address] JAM[address] RAI, [address] [address] Assigned Musculoskeletal Provider 12/23/23 documented as of this encounter
--- OUTSIDE RECORDS SUMMARY | 2024-07-08 06:56 | XMS_ITS | Encounter Summary ---
Author Organization [place] Address [facility] [place] [address] Care Team Providers Care Brake Assembler Name Role Phone Emiliana Simmons MD Primary Care Provider Emiliana Simmons MD Unavailable [phone] Emiliana Simmons MD Unavailable [phone] Vick Anne PA-C Unavailable + Emiliana Simmons MD Unavailable + Emiliana Simmons MD Unavailable + Iliana Greene CN Unavailable [phone] Cris Smith MD Unavailable [phone] Opal Baumann APRN LABOR CONTRACTOR Unavailable + Vick Anne PA-C Unavailable +[phone] Vick Anne PA-C Primary Care Provider [phone] Walter Waldrop DO Unavailable [phone] Reason for Visit * Reason Onset Date Comments Weight Problem 10/10/2012 Weight gain Encounter Details Date Type Department Care Team (Late st Contact Info) Description 10/10/2012 [facility] [place] Advice [address], [address] [place] [address] [place] [address] EMILY LIZAMA [address] Weight Problem (Weight gain) Social History Tobacco Use Types Packs/Day Years Used Date Smoking Tobacco: Never Alcohol Use Standard Drinks/Week Comments Yes 0 (1 standard drink = 0.6 oz pur e alcohol) occasionally Comments Unknown Sex and Gender Information Value Date Recorded Sex Assigned at Female 08/28/2018 9:26 AM CDT Legal Sex Female 10:35 AM LOADER DEMOLDER Gender Identity Female 08/28/2018 9:26 AM CDT [...] on filedocumented in this encounter Care Teams Brake Assembler Relationship Specialty Start Date End Date Emiliana Simmons MD PCP - General Family Practice 01/11/13 12/04/23 [place] [address] EMILY LIZAMA [address] PCP - Assigned PCP 08/07/17 07/04/18 Vick Anne PA-C 10888 EMILY LIZAMA [address] PCP - General 12/05/23 [place] [address] [place] [address] Assigned PCP 08/07/17 08/05/18 Vick Anne PA-C [address] [place] [address] Assigned PCP 08/06/18 04/14/19 [place] [address] [place] [address] Assigned PCP 04/15/19 08/30/20 [place] [address] [place] [address] Assigned PCP 08/31/20 03/05/22 Iliana Greene CNM [address]45 [place] [address] Assigned OBGYN Provider 03/22/21 Cris Smith MD [address] [facility] 396 [place], [place] [address] Assigned Surgical Provider 07/26/21 Opal Baumann APRN LABOR CONTRACTOR [address] [place] [address] Assigned PCP 03/06/22 09/03/22 Vick Anne PA-C [address] [place] [address] Assigned PCP 09/04/22 [place] [address] JAMAL RAI, [address] [address] Assigned Musculoskeletal Provider 12/23/23 documented as of this encounter
--- OUTSIDE RECORDS SUMMARY | 2024-07-08 06:56 | XMS_ITS | Encounter Summary ---
Author Organization [place] Address [address] [facility] [place] [address] Care Team Providers Care Entry Level Drafter Name Role Phone Cris Smith MD Unavailable [phone] Vick Anne PA-C Unavailable [phone] Vick Anne PA-C Primary Care Provider [phone] Walter Waldrop DO Unavailable [phone] Reason for Visit * Reason Comments Medication Refill Encounter Details Date Type Department Care Team (Late st Contact Info) Description [facility] [address] [place] [address] Vick Anne PA-C [address] [place] [address] Medication Refill Social History Tobacco [...] re latives? Once a week 11/24/2023 Attends Pentecostalism Services Not on file 11/23 Active Member of Clubs or Organizations Not on f ile 11/24/2023 Attends Club or Organization Meetings Not on westley e 11/24/2023 Marital Status Not on file 11/24/2023 PHQ-2 Answer Date Recorded PHQ-2 Score 0 08/04/2023 [facility] - Occupational Stress Questionnaire [...] in an abandoned building, in an overnight prison, or couch-surfing.) No 11/24/2023 Are you worried [...] AM CDT Legal Sex Female 10:35 AM DRYWALL CARRIER Gender Identity Female 08/28/2018 9:26 AM CDT Sexual Orientation Straight 08/28/2018 9: 26 AM CDT documented as of this encounter Plan of Treatment Not on file documented as of this encounter Visit Diagnoses Diagnosis Cold sore Herpes simplex without mention of complication documented in this encounter Additional Health Concerns Assessment Noted Time PHQ-9 Depression Total Score: 1 04/06/20 16 7:08 AM DRYWALL CARRIER documented as of this encounter Care Teams Entry Level Drafter Relationship Specialty Start Date End Date Vick Anne PA-C [address] [place] [address] PCP - General 12/05/23 Cris Smith MD 420 [facility] 396 [place], [place] [address] Assigned Surgical Provider 07/26/21 Vick Anne PA-C [address] [place] [address] Assigned PCP 09/04/22 [place] [address] JAMAL RAI, [address] [address] Assigned Musculoskeletal Provider 12/23/23 documented as of this encounter
--- OUTSIDE RECORDS SUMMARY | 2024-07-08 06:56 | XMS_ITS | Encounter Summary ---
Author Organization [place] Address [facility] [place] [address] Care Team Providers Care Dock Manager Name Role Phone Emiliana Simmons MD Primary Care Provider Emiliana Simmons MD Unavailable [phone] Emiliana Simmons MD Unavailable [phone] Iliana Greene CN Unavailable [phone] Cris Smith MD Unavailable [phone] Opal Baumann APRN [facility] Unavailable [phone] Vick Anne PA-C Unavailable [phone] Vick Anne PA-C Primary Care Provider [phone] Walter Waldrop DO Unavailable [phone] Encounter Details Date Type Department Care Team (Late st Contact Info) Description 10/16/2019 [facility] Medical Advice [address] [address] Randi Brantley Social History Tobacco [...] AM CDT Legal Sex Female 10:35 AM UPPER CUTTER OUT Gender Identity Female 08/28/2018 9:26 AM CDT [...] Total Score: 1 04/06/20 16 7:08 AM UPPER CUTTER OUT documented as of this encounter Care Teams Dock Manager Relationship Specialty Start Date End Date Emiliana Simmons MD PCP - General Family Practice 01/11/13 12/04/23 Vick Anne PA-C 423[address] EMILY LIZAMA [address] PCP - General 12/05/23 [place] [address] EMILY LIZAMA [address] Assigned PCP 04/15/19 08/30/20 [place] [address] EMILY LIZAMA [address] Assigned PCP 08/31/20 03/05/22 Iliana Greene CNM [address]45 [place] [address] Assigned OBGYN Provider 03/22/21 Cris Smith MD 420 [facility] 396 [place], [place] [address] Assigned Surgical Provider 07/26/21 Opal Baumann APRN ADJUNCT WRITING INSTRUCTOR [address] [place] [address] Assigned PCP 03/06/22 09/03/22 Vick Anne PA-C [address] [place] [address] Assigned PCP 09/04/22 [place] [address] JAMAL RAI, [address] [address] Assigned Musculoskeletal Provider 12/23/23 documented as of this encounter
--- OUTSIDE RECORDS SUMMARY | 2024-07-08 06:56 | XMS_ITS | Encounter Summary ---
Author Organization [place] Address [facility] [address] Care Team Providers Care Resort Host Name Role Phone Emiliana Simmons MD Primary Care Provider Emiliana Simmons MD Unavailable [phone] Emiliana Simmons MD Unavailable [phone] Iliana Greene CN Unavailable [phone] Cris Smith MD Unavailable [phone] Opal Baumann APRN [facility] Unavailable [phone] Vick Anne PA-C Unavailable [phone] Vick Anne PA-C Primary Care Provider [phone] Walter Waldrop DO Unavailable [phone] Encounter Details Date Type Department Care Team (Late st Contact Info) Description 08/08/2020 [facility] [address] [address] Lili Anguiano MA Social History [...] AM CDT Legal Sex Female 10:35 AM APPAREL EMBROIDERY DIGITIZER Gender Identity Female 08/28/2018 9:26 AM CDT Sexual Orientation Straight 08/28/2018 9: 26 AM CDT documented as of this encounter Plan of Treatment Not on file documented as of this encounter Visit Diagnoses Not on filedocumented in this encounter Additional Health Concerns Assessment Noted Time PHQ-9 Depression Total Score: 1 04/06/20 16 7:08 AM APPAREL EMBROIDERY DIGITIZER documented as of this encounter Care Teams Resort Host Relationship Specialty Start Date End Date Emiliana Simmons MD PCP - General Family Practice 01/11/13 12/04/23 Vick Anne PA-C 42744 EMILY LIZAMA [address] PCP - General 12/05/23 [place] [address] EMILY LIZAMA [address] Assigned PCP 04/15/19 08/30/20 [place] [address] EMILY LIZAMA [id number] Assigned PCP 08/31/20 03/05/22 Iliana Greene CNM [address] [place] [address] Assigned OBGYN Provider 03/22/21 Cris Smith MD [address] [facility] [address] [place] [address] Assigned Surgical Provider 07/26/21 Opal Baumann APRN REGISTERED MASSAGE THERAPIST [address] EMILY LIZAMA [address] Assigned PCP 03/06/22 09/03/22 Vick Anne PA-C 41578 EMILY LIZAMA [address] Assigned PCP 09/04/22 [place] [address] JAMAL RAI, [address] [address] Assigned Musculoskeletal Provider 12/23/23 documented as of this encounter
--- OUTSIDE RECORDS SUMMARY | 2024-07-08 06:56 | XMS_ITS | Encounter Summary ---
Author Organization [place] Address [address] [facility] [place] [address] Care Team Providers Care Web Content Executive Name Role Phone Emiliana Simmons MD Primary Care Provider Cris Smith MD Unavailable [phone] Vick Anne PA-C Unavailable [phone] Vick Anne PA-C Primary Care Provider [phone] Walter Waldrop DO Unavailable [phone] Reason for Visit * Reason Comments Medication Refill Encounter Details Date Type Department Care Team (Late st Contact Info) Description [facility] [address] [place] [address] Vick Anne PA-C [address] [place] [address] Medication Refill Social History Tobacco [...] AM CDT Legal 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 Gender Identity Female 08/28/2018 9:26 AM [...] Total Score: 1 04/06/20 16 7:08 AM PILL MACHINE OPERATOR documented as of this encounter Care Teams Web Content Executive Relationship Specialty Start Date End Date Emiliana Simmons MD PCP - General Family Practice 01/11/13 12/04/23 Vick Anne PA-C [address] [place] [id number] PCP - General 12/05/23 Cris Smith MD [address] [place] [address] [address] [place] [address] Assigned Surgical Provider 07/26/21 Vick Anne PA-C 22812 EMILY LIZAMA [address] Assigned PCP 09/04/22 [place] [address] JAMAL RAI, [address] [address] Assigned Musculoskeletal Provider 12/23/23 documented as of this encounter
--- OUTSIDE RECORDS SUMMARY | 2024-07-08 06:56 | XMS_ITS | Encounter Summary ---
Author Organization [place] Address [facility]0 [facility] [place] [address] Care Team Providers Care Stonework Tracer Name Role Phone Emiliana Simmons MD Primary Care Provider Emiliana Simmons MD Unavailable [phone] Emiliana Simmons MD Unavailable [phone] Iliana Greene CN Unavailable [phone] Cris Smith MD Unavailable [phone] Opal Baumann APRN [facility] Unavailable [phone] Vick Anne PA-C Unavailable [phone] Vick Anne PA-C Primary Care Provider [phone] Walter Waldrop DO Unavailable [phone] Reason for Visit * Reason Onset Date Comments Medication Update 05/02/2019 Spironolactone Encounter Details Date Type Department Care Team (Late st Contact Info) Description 05/02/2019 [facility] Medical Advice [address], [address] [place] [address] [place] [address] [facility] [place] [address] Medication Update (Spironolactone) Social History [...] AM CDT 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 She can make a acne follow appt appt or Evisit, we can keep adjusting or changing her meds, if she wants the IUD out, this is her call, please offer appt if needed ERTY ACCOUNTANT documented in this encounter Plan of Treatment Not on file documented as of this encounter Visit Diagnoses Not on filedocumented in this encounter Additional Health Concerns Assessment Noted Time PHQ-9 Depression Total Score: 1 04/06/20 16 7:08 AM PROPERTY ACCOUNTANT documented as of this encounter Care Teams Stonework Tracer Relationship Specialty Start Date End Date Emiliana Simmons MD PCP - General Family Practice 01/11/13 12/04/23 Vick Anne PA-C 51762 EMILY LIZAMA [address] PCP - General 12/05/23 [place] [address] EMILY LIZAMA [address] Assigned PCP 04/15/19 08/30/20 [place] [address] [place] [address] Assigned PCP 08/31/20 03/05/22 Iliana Greene CNM [address] [place] [address] Assigned OBGYN Provider 03/22/21 Cris Smith MD 420 [facility] 396 [place], [place] [address] Assigned Surgical Provider 07/26/21 Opal Baumann APRN EDUCATIONAL PARAPROFESSIONAL [address] [address] EMILY SARMIENTO [address] Assigned PCP 03/06/22 09/03/22 Vick Anne PA-C 73395 EMILY LIZAMA [address] Assigned PCP 09/04/22 [place] [address] JAMAL RAI, [address] [address] Assigned Musculoskeletal Provider 12/23/23 documented as of this encounter
--- OUTSIDE RECORDS SUMMARY | 2024-07-08 06:56 | XMS_ITS | Encounter Summary ---
Author Organization [place] Address [facility], [id number]–[address] [facility] [place] [address] Care Team Providers Care Wheel Polisher Name Role Phone Emiliana Simmons MD Primary Care Provider Emiliana Simmons MD Unavailable [phone] Vick Anne PA-C Unavailable [phone] Emiliana Simmons MD Unavailable + Emiliana Simmons MD Unavailable + Iliana Greene [facility] Unavailable [phone] Cris Smith MD Unavailable [phone] Oapl Baumann APRN [facility] Unavailable + Vick Anne PA-C Unavailable + Vick Anne PA-C Primary Care Provider [phone] Walter Waldrop DO Unavailable [phone] Reason for Visit * Reason Onset Date Comments Appointment 07/06/2018 Physical exam Encounter Details Date Type Department Care Team (Late st Contact Info) Description 07/06/2018 [facility] [address], [address] [place] [address] [place] [address] EMILY LIZAMA [address] Appointment (Physical exam) Social History Tobacco Use [...] AM CDT 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 Gender Identity Female 08/28/2018 9:26 AM CDT Sexual Orientation Straight 08/28/2018 9: 26 AM CDT documented as of this encounter Plan of Treatment Not on file documented as of this encounter Visit Diagnoses Not on filedocumented in this encounter Additional Health Concerns Assessment Noted Time PHQ-9 Depression Total Score: 1 04/06/20 16 7:08 AM TELECOMMUNICATIONS CLERK documented as of this encounter Care Teams Wheel Polisher Relationship Specialty Start Date End Date Emiliana Simmons MD PCP - General Family Practice 01/11/13 12/04/23 Vick Anne PA-C 79035 EMILY LIZAMA [address] PCP - General 12/05/23 [place] [address] EMILY LIZAMA [address] Assigned PCP 08/07/17 08/05/18 Vick Anne PA-C 91392 EMILY LIZAMA [address] Assigned PCP 08/06/18 04/14/19 [place] [address] EMILY LIZAMA [address] Assigned PCP 04/15/19 08/30/20 [place] [address] [place] [address] Assigned PCP 08/31/20 03/05/22 Iliana Greene [facility] [address] [place] [address] Assigned OBGYN Provider 03/22/21 Cris Smith MD 420 [facility] 396 [place] [address] Assigned Surgical Provider 07/26/21 Opal Baumann APRN [employer] [address] [place] [address] Assigned PCP 03/06/22 09/03/22 Vick Anne PA-C [address] [place] [address] Assigned PCP 09/04/22 [place] [address] JAMAL RAI, [address] [address] Assigned Musculoskeletal Provider 12/23/23 documented as of this encounter
[2024-07-08 07:19] LABS: Hematocrit 43.8 % (33.0-51.0); Hemoglobin* 14.9 gm/dL (12.0-16.0); Mean Corpuscular HGB Conc 34 gm/dL (32-36); Mean Corpuscular Hemoglobin 31 pg (26-34); Mean Corpuscular Volume 91 fL (80-100); Neutrophils Percent Auto 51.3 % (42.0-72.0); Platelet Count* 245 K/uL (140-440); Red Blood Count 4.81 m/uL (4.00-5.20); White Blood Count* 5.03 K/uL (4.50-11.00)
[2024-07-08 07:20] LABS: Basophils Percent Auto 0.2 % (0.0-3.0); Eosinophils Percent Auto 6.6 % (0.0-7.0); Lymphocytes Percent Auto 32.6 % (20-44); Monocytes Percent Auto 8.6 % (0.0-11.0); Slide Review Reflex No; Sodium* 137 mmol/L (135-149)
[2024-07-08 07:21] LABS: Anion Gap 11 mEq/L (7-15); Blood Urea Nitrogen* 12 mg/dL (5-24); Calcium* 8.8 mg/dL (8.4-10.6); Carbon Dioxide* 23 mmol/L (20-32); Chloride* 103 mmol/L (96-114); Creatinine* 0.8 mg/dL (0.5-1.5); Est. Creatinine Clearance* 82.33; Estimated Glomerular Filt Rate 97 ml/min; Potassium* 4.2 mmol/L (3.6-5.1)
[2024-07-08 07:22] LABS: Alanine Aminotransferase* 22 U/L (4-35); Alkaline Phosphatase* 70 U/L (40-150); Aspartate Amino Transferase* 24 U/L (12-35); Bilirubin Direct* 0.4 mg/dL (0.0-0.5); Bilirubin Total* 0.6 mg/dL (0.1-1.5); C Reactive Protein* 5.2 mg/dL (0.5-1.0); Glucose* 103 mg/dL (60-115); Lipase* 67 U/L (23-300); Total Protein* 6.9 g/dL (6.0-8.3)
== END 2024-07-08 06:53 | disposition home or self-care (01) ==
LOC: ED 06:51
PROVIDERS: Emergency Provider Family Medicine
DX: I88.0 Nonspecific mesenteric lymphadenitis (principal); K52.9 Noninfective gastroenteritis and colitis, unspecified
CPT/HCPCS: 36415; 74177; 76705; 80048; 80076; 83690; 85025; 86140; 94761; 99284; Q9967